=== PATIENT | female | born 1970 | race Caucasian/White ===

== ENCOUNTER 2016-09-19 17:31 | Emergency (ER) | payer OTHER ==
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
--- NOTE | 2016-09-19 19:14 | ED MAR SUMMARY ---
..... Medication Administration Record [facility] [address] [place], [place] [id number] Patient: VERÓNICA CANTU Visit ID: [id number] 46y, F Weight: 72.5 kg Height/Length: 61 in BMI: 30.2 ALLERGIES: No Known Drug Allergy
--- NOTE | 2016-09-19 19:14 | ED MAR SUMMARY ---
..... Medication Administration Record [facility] [address] [place], [place] [id number] Patient: VERÓNICA CANTU Visit ID: [id number] 46y, F Weight: 72.5 kg Height/Length: 61 in BMI: 30.2 ALLERGIES: No Known Drug Allergy
--- NOTE | 2016-09-19 19:14 | ED MED RECONCILIATION SUMMARY ---
Patient: VERÓNICA CANTU Medication Reconciliation Report [facility] VisitID: [id number] [address] [place] [address] 46y, F Registration Date/Time: 09/19/2016 Weight: 72.5 kg Height/Length: 61 in. BMI: 30.2 ALLERGIES: No Known Drug Allergy The patient's Home Medications are listed below: THE FOLLOWING MEDICATIONS NEED TO BE RECONCILED: Over the counter antibiotic with pain relief PredniSONE Oral The source(s) of the original Home Medication information: patient The following Medications were given to the patient in the Emergency Department: None. The following Medications were prescribed to the patient: Bactrim DS 800 mg / 160 mg: take 1 tablet orally every 12 hours for 10 days. No refill. -- Dorothy Quinones A.R.N.P. Keflex 500 mg: take 1 capsule orally every 12 hours for 10 days. No refill. -- Dorothy Quinones A.R.N.P. Ultram 50 mg tablets: take 1-2 orally every 6 hours as needed for pain. Dispense twenty (20). No refills. Substitution is permissible. -- Dorothy Quinones A.R.N.P. Betamethasone [id number] bottleapply bid to affected areas. -- Dorothy Quinones A.R.N.P.
--- NOTE | 2016-09-19 19:14 | ED DISCHARGE INSTRUCTIONS ---
Patient: VERÓNICA CANTU General Instructions [facility] VisitID: [id number] [place] [address] 46y, F Registration Date/Time: 09/19/2016 Irritative contact dermatitis. INSTRUCTIONS Warnings: GENERAL WARNINGS: Return or contact your physician immediately if your condition worsens or changes unexpectedly, if not improving as expected, or if other problems arise. Specifically return if problem worsens. Prescription Medications: Bactrim DS 800 mg / 160 mg: take 1 tablet orally every 12 hours for 10 days. No refill. Keflex 500 mg: take 1 capsule orally every 12 hours for 10 days. No refill. Ultram 50 mg tablets: take 1-2 orally every 6 hours as needed for pain. Dispense twenty (20). No refills. Substitution is permissible. Betamethasone Diproprinate 120ml bottle apply bid to affected areas. 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 Call for an appointment. Summary of care provided to patient. Screening today revealed the patient's blood pressure to be in the hypertensive range. The patient should follow up with a primary care provider for blood pressure management. Understanding of the discharge instructions verbalized by patient. ADDITIONAL INFORMATION Dermatitis (Non-Specific) Dermatitis is an inflammation of the skin. The exact cause of your rash is not certain. However, this rash does not appear to be an infection or contagious illness. Taking care of the rash at home should help relieve your symptoms. Home Care: Keep the areas of rash clean by washing it daily. This also helps to keep the skin moist. Use a neutral pH soap such as Dove or Lever 2000. Apply a moisturizing lotion after bathing to prevent dry skin. Avoid skin irritants (wool or silk clothing, grease, oils, some medicines, harsh soaps, and detergents). Wear absorbent, soft fabrics next to the skin rather than rough or scratchy materials. Unless another medicine was prescribed, you may use Hydrocortisone cream (which you can get without a prescription) to reduce the inflammation. Follow Up: Make an appointment with your doctor in the next 1 to 2 weeks if your symptoms do not improve with the above measures. Get Prompt Medical Attention if any of the following occur: Increasing area of redness or pain in the skin Yellow crusts or drainage from the rash Joint pain New rash that appears in other areas of the body Fever of 100.4F (38C) or higher, or as directed by your healthcare provider Sulfamethoxazole, Trimethoprim Oral tablet What is this medicine? SULFAMETHOXAZOLE; TRIMETHOPRIM or SMX-TMP (suhl fuh meth OK jackie zohl; trye METH oh prim) is a combination of a sulfonamide antibiotic and a second antibiotic, trimethoprim. It is used to treat or prevent certain kinds of bacterial infections. It will not work for colds, flu, or other viral infections. How should I use this medicine? Take this medicine by mouth with a full glass of water. Follow the directions on the prescription label. Take your medicine at regular intervals. Do not take it more often than directed. Do not skip doses or stop your medicine early. Talk to your publications writer regarding the use of this medicine in children. Special care may be needed. This medicine has been used in children as young as 2 months of age. What side effects may I notice from receiving this medicine? Side effects that you should report to your doctor or health rn acute care as soon as possible: allergic reactions like skin rash or hives, swelling of the face, lips, or tongue breathing problems fever or chills, sore throat irregular heartbeat, chest pain joint or muscle pain pain or difficulty passing urine red pinpoint spots on skin redness, blistering, peeling or loosening of the skin, including inside the mouth unusual bleeding or bruising unusually weak or tired yellowing of the eyes or skin Side effects that usually do not require medical attention (report to your doctor or health rn acute care if they continue or are bothersome): diarrhea dizziness headache loss of appetite nausea, vomiting nervousness What may interact with this medicine? Do not take this medicine with any of the following medications: aminobenzoate potassium dofetilide metronidazole This medicine may also interact with the following medications: ASHLI inhibitors like benazepril, enalapril, lisinopril, and ramipril cyclosporine digoxin diuretics indomethacin medicines for diabetes methenamine methotrexate phenytoin potassium supplements pyrimethamine sulfinpyrazone tricyclic antidepressants warfarin What if I miss a dose? If you miss a dose, take it as soon as you can. If it is almost time for your next dose, take only that dose. Do not take double or extra doses. Where should I keep my medicine? Keep out of the reach of children. Store at room temperature between 20 to 25 degrees C (68 to 77 degrees F). Protect from light. Throw away any unused medicine after the expiration date. What should I tell my health care provider before I take this medicine? They need to know if you have any of these conditions: anemia asthma being treated with anticonvulsants if you frequently drink alcohol containing drinks kidney disease liver disease low level of folic acid or [id number] dehydrogenase poor nutrition or malabsorption porphyria severe allergies thyroid disorder an unusual or allergic reaction to sulfamethoxazole, trimethoprim, sulfa drugs, other medicines, foods, dyes, or preservatives or trying to get breast-feeding What should I watch for while using this medicine? Tell your doctor or health rn acute care if your symptoms do not improve. Drink several glasses of water a day to reduce the risk of kidney problems. Do not treat diarrhea with over the counter products. Contact your doctor if you have diarrhea that lasts more than 2 days or if it is severe and watery. This medicine can make you more sensitive to the sun. Keep out of the sun. If you cannot avoid being in the sun, wear protective clothing and use a sunscreen. Do not use sun lamps or tanning beds/booths. Cephalexin Monohydrate Oral tablet What is this medicine? CEPHALEXIN (sef a HAYDEN in) is a cephalosporin antibiotic. It is used to treat certain kinds of bacterial infections It will not work for colds, flu, or other viral infections. How should I use this medicine? Take this medicine by mouth with a full glass of water. Follow the directions on the prescription label. This medicine can be taken with or without food. Take your medicine at regular intervals. Do not take your medicine more often than directed. Take all of your medicine as directed even if you think you are better. Do not skip doses or stop your medicine early. Talk to your publications writer regarding the use of this medicine in children. While this drug may be prescribed for selected conditions, precautions do apply. What side effects may I notice from receiving this medicine? Side effects that you should report to your doctor or health rn acute care as soon as possible: allergic reactions like skin rash, itching or hives, swelling of the face, lips, or tongue breathing problems pain or trouble passing urine redness, blistering, peeling or loosening of the skin, including inside the mouth severe or watery diarrhea unusually weak or tired yellowing of the eyes, skin Side effects that usually do not require medical attention (report to your doctor or health rn acute care if they continue or are bothersome): gas or heartburn genital or anal irritation headache joint or muscle pain nausea, vomiting What may interact with this medicine? probenecid some other antibiotics What if I miss a dose? If you miss a dose, take it as soon as you can. If it is almost time for your next dose, take only that dose. Do not take double or extra doses. There should be at least 4 to 6 hours between doses. Where should I keep my medicine? Keep out of the reach of children. Store at room temperature between 59 and 86 degrees F (15 and 30 degrees C). Throw away any unused medicine after the expiration date. What should I tell my health care provider before I take this medicine? They need to know if you have any of these conditions: kidney disease stomach or intestine problems, especially colitis an unusual or allergic reaction to cephalexin, other cephalosporins, penicillins, other antibiotics, medicines, foods, dyes or preservatives or trying to get breast-feeding What should I watch for while using this medicine? Tell your doctor or health rn acute care if your symptoms do not begin to improve in a few days. Do not treat diarrhea with over the counter products. Contact your doctor if you have diarrhea that lasts more than 2 days or if it is severe and watery. If you have diabetes, you may get a false-positive result for sugar in your urine. Check with your doctor or health rn acute care. Tramadol Hydrochloride Oral tablet What is this medicine? TRAMADOL (TRA ma dole) is a pain reliever. It is used to treat moderate to severe pain in adults. How should I use this medicine? Take this medicine by mouth with a full glass of water. Follow the directions on the prescription label. If the medicine upsets your stomach, take it with food or milk. Do not take more medicine than you are told to take. Talk to your publications writer regarding the use of this medicine in children. Special care may be needed. What side effects may I notice from receiving this medicine? Side effects that you should report to your doctor or health rn acute care as soon as possible: allergic reactions like skin rash, itching or hives, swelling of the face, lips, or tongue breathing difficulties, wheezing confusion itching light headedness or fainting spells redness, blistering, peeling or loosening of the skin, including inside the mouth seizures Side effects that usually do not require medical attention (report to your doctor or health rn acute care if they continue or are bothersome): constipation dizziness drowsiness headache nausea, vomiting What may interact with this medicine? Do not take this medicine with any of the following medications: MAOIs like Carbex, Eldepryl, Marplan, Nardil, and Parnate This medicine may also interact with the following medications: alcohol or medicines that contain alcohol antihistamines benzodiazepines bupropion carbamazepine or oxcarbazepine clozapine cyclobenzaprine digoxin furazolidone linezolid medicines for depression, anxiety, or psychotic disturbances medicines for migraine headache like almotriptan, eletriptan, frovatriptan, naratriptan, rizatriptan, sumatriptan, zolmitriptan medicines for pain like pentazocine, buprenorphine, butorphanol, meperidine, nalbuphine, and propoxyphene medicines for sleep muscle relaxants naltrexone phenobarbital phenothiazines like perphenazine, thioridazine, chlorpromazine, mesoridazine, fluphenazine, prochlorperazine, promazine, and trifluoperazine procarbazine warfarin What if I miss a dose? If you miss a dose, take it as soon as you can. If it is almost time for your next dose, take only that dose. Do not take double or extra doses. Where should I keep my medicine? Keep out of the reach of children. Store at room temperature between 15 and 30 degrees C (59 and 86 degrees F). Keep container tightly closed. Throw away any unused medicine after the expiration date. What should I tell my health care provider before I take this medicine? They need to know if you have any of these conditions: brain tumor depression drug abuse or addiction head injury if you frequently drink alcohol containing drinks kidney disease or trouble passing urine liver disease lung disease, asthma, or breathing problems seizures or epilepsy suicidal thoughts, plans, or attempt; a previous suicide attempt by you or a family member an unusual or allergic reaction to tramadol, codeine, other medicines, foods, dyes, or preservatives or trying to get breast-feeding What should I watch for while using this medicine? Tell your doctor or health rn acute care if your pain does not go away, if it gets worse, or if you have new or a different type of pain. You may develop tolerance to the medicine. Tolerance means that you will need a higher dose of the medicine for pain relief. Tolerance is normal and is expected if you take this medicine for a long time. Do not suddenly stop taking your medicine because you may develop a severe reaction. Your body becomes used to the medicine. This does NOT mean you are addicted. Addiction is a behavior related to getting and using a drug for a non-medical reason. If you have pain, you have a medical reason to take pain medicine. Your doctor will tell you how much medicine to take. If your doctor wants you to stop the medicine, the dose will be slowly lowered over time to avoid any side effects. You may get drowsy or dizzy. Do not drive, use machinery, or do anything that needs mental alertness until you know how this medicine affects you. Do not stand or sit up quickly, especially if you are an older patient. This reduces the risk of dizzy or fainting spells. Alcohol can increase or decrease the effects of this medicine. Avoid alcoholic drinks. You may have constipation. Try to have a bowel movement at least every 2 to 3 days. If you do not have a bowel movement for 3 days, call your doctor or health rn acute care. Your mouth may get dry. Chewing sugarless gum or sucking hard candy, and drinking plenty of water may help. Contact your doctor if the problem does not go away or is severe. You have been given the following additional information: Dermatitis, Non-Specific Sulfamethoxazole, Trimethoprim Oral tablet Cephalexin Monohydrate Oral tablet Tramadol Hydrochloride Oral tablet (Electronically signed by Dorothy Quinones A.R.N.P. 09/19/2016 19:14)
--- NOTE | 2016-09-19 19:14 | ED DISCHARGE INSTRUCTIONS ---
Patient: VERÓNICA CANTU General Instructions [facility] VisitID: [id number] [place] [address] 46y, F Registration Date/Time: 09/19/2016 Irritative contact dermatitis. INSTRUCTIONS Warnings: GENERAL WARNINGS: Return or contact your physician immediately if your condition worsens or changes unexpectedly, if not improving as expected, or if other problems arise. Specifically return if problem worsens. Prescription Medications: Bactrim DS 800 mg / 160 mg: take 1 tablet orally every 12 hours for 10 days. No refill. Keflex 500 mg: take 1 capsule orally every 12 hours for 10 days. No refill. Ultram 50 mg tablets: take 1-2 orally every 6 hours as needed for pain. Dispense twenty (20). No refills. Substitution is permissible. Betamethasone Diproprinate 120ml bottle apply bid to affected areas. 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 Call for an appointment. Summary of care provided to patient. Screening today revealed the patient's blood pressure to be in the hypertensive range. The patient should follow up with a primary care provider for blood pressure management. Understanding of the discharge instructions verbalized by patient. ADDITIONAL INFORMATION Dermatitis (Non-Specific) Dermatitis is an inflammation of the skin. The exact cause of your rash is not certain. However, this rash does not appear to be an infection or contagious illness. Taking care of the rash at home should help relieve your symptoms. Home Care: Keep the areas of rash clean by washing it daily. This also helps to keep the skin moist. Use a neutral pH soap such as Dove or Lever 2000. Apply a moisturizing lotion after bathing to prevent dry skin. Avoid skin irritants (wool or silk clothing, grease, oils, some medicines, harsh soaps, and detergents). Wear absorbent, soft fabrics next to the skin rather than rough or scratchy materials. Unless another medicine was prescribed, you may use Hydrocortisone cream (which you can get without a prescription) to reduce the inflammation. Follow Up: Make an appointment with your doctor in the next 1 to 2 weeks if your symptoms do not improve with the above measures. Get Prompt Medical Attention if any of the following occur: Increasing area of redness or pain in the skin Yellow crusts or drainage from the rash Joint pain New rash that appears in other areas of the body Fever of 100.4F (38C) or higher, or as directed by your healthcare provider Sulfamethoxazole, Trimethoprim Oral tablet What is this medicine? SULFAMETHOXAZOLE; TRIMETHOPRIM or SMX-TMP (suhl fuh meth OK jackie zohl; trye METH oh prim) is a combination of a sulfonamide antibiotic and a second antibiotic, trimethoprim. It is used to treat or prevent certain kinds of bacterial infections. It will not work for colds, flu, or other viral infections. How should I use this medicine? Take this medicine by mouth with a full glass of water. Follow the directions on the prescription label. Take your medicine at regular intervals. Do not take it more often than directed. Do not skip doses or stop your medicine early. Talk to your door trimmer regarding the use of this medicine in children. Special care may be needed. This medicine has been used in children as young as 2 months of age. What side effects may I notice from receiving this medicine? Side effects that you should report to your doctor or health child care nurse as soon as possible: allergic reactions like skin rash or hives, swelling of the face, lips, or tongue breathing problems fever or chills, sore throat irregular heartbeat, chest pain joint or muscle pain pain or difficulty passing urine red pinpoint spots on skin redness, blistering, peeling or loosening of the skin, including inside the mouth unusual bleeding or bruising unusually weak or tired yellowing of the eyes or skin Side effects that usually do not require medical attention (report to your doctor or health child care nurse if they continue or are bothersome): diarrhea dizziness headache loss of appetite nausea, vomiting nervousness What may interact with this medicine? Do not take this medicine with any of the following medications: aminobenzoate potassium dofetilide metronidazole This medicine may also interact with the following medications: ASHLI inhibitors like benazepril, enalapril, lisinopril, and ramipril cyclosporine digoxin diuretics indomethacin medicines for diabetes methenamine methotrexate phenytoin potassium supplements pyrimethamine sulfinpyrazone tricyclic antidepressants warfarin What if I miss a dose? If you miss a dose, take it as soon as you can. If it is almost time for your next dose, take only that dose. Do not take double or extra doses. Where should I keep my medicine? Keep out of the reach of children. Store at room temperature between 20 to 25 degrees C (68 to 77 degrees F). Protect from light. Throw away any unused medicine after the expiration date. What should I tell my health care provider before I take this medicine? They need to know if you have any of these conditions: anemia asthma being treated with anticonvulsants if you frequently drink alcohol containing drinks kidney disease liver disease low level of folic acid or [id number] dehydrogenase poor nutrition or malabsorption porphyria severe allergies thyroid disorder an unusual or allergic reaction to sulfamethoxazole, trimethoprim, sulfa drugs, other medicines, foods, dyes, or preservatives or trying to get breast-feeding What should I watch for while using this medicine? Tell your doctor or health child care nurse if your symptoms do not improve. Drink several glasses of water a day to reduce the risk of kidney problems. Do not treat diarrhea with over the counter products. Contact your doctor if you have diarrhea that lasts more than 2 days or if it is severe and watery. This medicine can make you more sensitive to the sun. Keep out of the sun. If you cannot avoid being in the sun, wear protective clothing and use a sunscreen. Do not use sun lamps or tanning beds/booths. Cephalexin Monohydrate Oral tablet What is this medicine? CEPHALEXIN (sef a AHYDEN in) is a cephalosporin antibiotic. It is used to treat certain kinds of bacterial infections It will not work for colds, flu, or other viral infections. How should I use this medicine? Take this medicine by mouth with a full glass of water. Follow the directions on the prescription label. This medicine can be taken with or without food. Take your medicine at regular intervals. Do not take your medicine more often than directed. Take all of your medicine as directed even if you think you are better. Do not skip doses or stop your medicine early. Talk to your door trimmer regarding the use of this medicine in children. While this drug may be prescribed for selected conditions, precautions do apply. What side effects may I notice from receiving this medicine? Side effects that you should report to your doctor or health child care nurse as soon as possible: allergic reactions like skin rash, itching or hives, swelling of the face, lips, or tongue breathing problems pain or trouble passing urine redness, blistering, peeling or loosening of the skin, including inside the mouth severe or watery diarrhea unusually weak or tired yellowing of the eyes, skin Side effects that usually do not require medical attention (report to your doctor or health child care nurse if they continue or are bothersome): gas or heartburn genital or anal irritation headache joint or muscle pain nausea, vomiting What may interact with this medicine? probenecid some other antibiotics What if I miss a dose? If you miss a dose, take it as soon as you can. If it is almost time for your next dose, take only that dose. Do not take double or extra doses. There should be at least 4 to 6 hours between doses. Where should I keep my medicine? Keep out of the reach of children. Store at room temperature between 59 and 86 degrees F (15 and 30 degrees C). Throw away any unused medicine after the expiration date. What should I tell my health care provider before I take this medicine? They need to know if you have any of these conditions: kidney disease stomach or intestine problems, especially colitis an unusual or allergic reaction to cephalexin, other cephalosporins, penicillins, other antibiotics, medicines, foods, dyes or preservatives or trying to get breast-feeding What should I watch for while using this medicine? Tell your doctor or health child care nurse if your symptoms do not begin to improve in a few days. Do not treat diarrhea with over the counter products. Contact your doctor if you have diarrhea that lasts more than 2 days or if it is severe and watery. If you have diabetes, you may get a false-positive result for sugar in your urine. Check with your doctor or health child care nurse. Tramadol Hydrochloride Oral tablet What is this medicine? TRAMADOL (TRA ma dole) is a pain reliever. It is used to treat moderate to severe pain in adults. How should I use this medicine? Take this medicine by mouth with a full glass of water. Follow the directions on the prescription label. If the medicine upsets your stomach, take it with food or milk. Do not take more medicine than you are told to take. Talk to your door trimmer regarding the use of this medicine in children. Special care may be needed. What side effects may I notice from receiving this medicine? Side effects that you should report to your doctor or health child care nurse as soon as possible: allergic reactions like skin rash, itching or hives, swelling of the face, lips, or tongue breathing difficulties, wheezing confusion itching light headedness or fainting spells redness, blistering, peeling or loosening of the skin, including inside the mouth seizures Side effects that usually do not require medical attention (report to your doctor or health child care nurse if they continue or are bothersome): constipation dizziness drowsiness headache nausea, vomiting What may interact with this medicine? Do not take this medicine with any of the following medications: MAOIs like Carbex, Eldepryl, Marplan, Nardil, and Parnate This medicine may also interact with the following medications: alcohol or medicines that contain alcohol antihistamines benzodiazepines bupropion carbamazepine or oxcarbazepine clozapine cyclobenzaprine digoxin furazolidone linezolid medicines for depression, anxiety, or psychotic disturbances medicines for migraine headache like almotriptan, eletriptan, frovatriptan, naratriptan, rizatriptan, sumatriptan, zolmitriptan medicines for pain like pentazocine, buprenorphine, butorphanol, meperidine, nalbuphine, and propoxyphene medicines for sleep muscle relaxants naltrexone phenobarbital phenothiazines like perphenazine, thioridazine, chlorpromazine, mesoridazine, fluphenazine, prochlorperazine, promazine, and trifluoperazine procarbazine warfarin What if I miss a dose? If you miss a dose, take it as soon as you can. If it is almost time for your next dose, take only that dose. Do not take double or extra doses. Where should I keep my medicine? Keep out of the reach of children. Store at room temperature between 15 and 30 degrees C (59 and 86 degrees F). Keep container tightly closed. Throw away any unused medicine after the expiration date. What should I tell my health care provider before I take this medicine? They need to know if you have any of these conditions: brain tumor depression drug abuse or addiction head injury if you frequently drink alcohol containing drinks kidney disease or trouble passing urine liver disease lung disease, asthma, or breathing problems seizures or epilepsy suicidal thoughts, plans, or attempt; a previous suicide attempt by you or a family member an unusual or allergic reaction to tramadol, codeine, other medicines, foods, dyes, or preservatives or trying to get breast-feeding What should I watch for while using this medicine? Tell your doctor or health child care nurse if your pain does not go away, if it gets worse, or if you have new or a different type of pain. You may develop tolerance to the medicine. Tolerance means that you will need a higher dose of the medicine for pain relief. Tolerance is normal and is expected if you take this medicine for a long time. Do not suddenly stop taking your medicine because you may develop a severe reaction. Your body becomes used to the medicine. This does NOT mean you are addicted. Addiction is a behavior related to getting and using a drug for a non-medical reason. If you have pain, you have a medical reason to take pain medicine. Your doctor will tell you how much medicine to take. If your doctor wants you to stop the medicine, the dose will be slowly lowered over time to avoid any side effects. You may get drowsy or dizzy. Do not drive, use machinery, or do anything that needs mental alertness until you know how this medicine affects you. Do not stand or sit up quickly, especially if you are an older patient. This reduces the risk of dizzy or fainting spells. Alcohol can increase or decrease the effects of this medicine. Avoid alcoholic drinks. You may have constipation. Try to have a bowel movement at least every 2 to 3 days. If you do not have a bowel movement for 3 days, call your doctor or health child care nurse. Your mouth may get dry. Chewing sugarless gum or sucking hard candy, and drinking plenty of water may help. Contact your doctor if the problem does not go away or is severe. You have been given the following additional information: Dermatitis, Non-Specific Sulfamethoxazole, Trimethoprim Oral tablet Cephalexin Monohydrate Oral tablet Tramadol Hydrochloride Oral tablet (Electronically signed by Dorothy Quinones A.R.N.P. 09/19/2016 19:14)
--- NOTE | 2016-09-19 19:14 | ED MED RECONCILIATION SUMMARY ---
Patient: VERÓNICA CANTU Medication Reconciliation Report [facility] VisitID: [id number] [place] [address] 46y, F Registration Date/Time: 09/19/2016 Weight: 72.5 kg Height/Length: 61 in. BMI: 30.2 ALLERGIES: No Known Drug Allergy The patient's Home Medications are listed below: THE FOLLOWING MEDICATIONS NEED TO BE RECONCILED: Over the counter antibiotic with pain relief PredniSONE Oral The source(s) of the original Home Medication information: patient The following Medications were given to the patient in the Emergency Department: None. The following Medications were prescribed to the patient: Bactrim DS 800 mg / 160 mg: take 1 tablet orally every 12 hours for 10 days. No refill. -- Dorothy Quinones A.R.N.P. Keflex 500 mg: take 1 capsule orally every 12 hours for 10 days. No refill. -- Dorothy Quinones A.R.N.P. Ultram 50 mg tablets: take 1-2 orally every 6 hours as needed for pain. Dispense twenty (20). No refills. Substitution is permissible. -- Dorothy Quinones A.R.N.P. Betamethasone [id number] bottleapply bid to affected areas. -- Dorothy Quinones A.R.N.P.
== END 2016-09-19 18:22 | disposition home or self-care (01) ==
LOC: ED SRH 17:31
DX: L24.9 Irritant contact dermatitis, unspecified cause (principal); Z79.52 Long term (current) use of systemic steroids; Z79.2 Long term (current) use of antibiotics

== ENCOUNTER 2016-11-21 19:06 | Emergency (ER) | payer OTHER ==
--- NOTE | 2016-11-21 21:54 | ED CLINICAL REPORT ---
Clinical Report - Physicians/Mid Levels [facility] [address] [place] [address] 11/21/2016 19:07 Patient: VERÓNICA CANTU Time Seen: 1937. Arrived- By private vehicle. Historian- patient. HISTORY OF PRESENT ILLNESS Chief Complaint: FLANK PAIN. This started past week or two and is still present and worsening. It was abrupt in onset and has been intermittent but is not gone now. It is described as sharp. No radiation. It is described as located in the right flank. At its maximum, severity described as moderate. When seen in the E.D., severity described as moderate. No nausea, loss of appetite, vomiting or diarrhea. No additional abdominal pain. (reports hx of pyelo and stones). No recent travel. Similar symptoms previously: None. Recent medical care: Not recently seen/assessed. REVIEW OF SYSTEMS No fever. All systems otherwise negative, except as recorded above. PAST HISTORY See nurses notes. Medications: Keflex Oral. Allergies: None. SOCIAL HISTORY Never smoker. Regular alcohol use. No drug use. No recent travel. Is a local resident. ADDITIONAL NOTES The nursing notes have been reviewed. PHYSICAL EXAM Vital Signs: 11/21/2016 19:11 BP: 125/92. HR: 127. RR: 20. O2 saturation: 99%. Temp: 98.1 F. Pain level now: 8/10. Oxygen saturation normal. Appearance: Alert. Oriented X3. Patient in mild distress. (pleasant. non-toxic.). Eyes: Pupils equal, round and reactive to light. Eyes normal inspection. ENT: Ears normal. Nose normal. Pharynx normal. Neck: Normal inspection. Neck supple. CVS: Normal heart rate and rhythm. Heart sounds normal. Pulses normal. Respiratory: No respiratory distress. Breath sounds normal. Chest nontender. No rales, rhonchi or wheezes. Abdomen: Soft and nontender. Bowel sounds normal. Back: Normal inspection. Moderate CVA tenderness on the right. (no crepitus. no overlying skin changes. no midline tenderness.). Skin: Skin warm and dry. Normal skin color. No rash. Normal skin turgor. Extremities: Extremities exhibit normal ROM. No lower extremity edema. Neuro: Oriented X 3. No motor deficit. No sensory deficit. LABS, X-RAYS, AND EKG Abdominal CT: 1. No evidence of urinary calculi but there is mild right hydronephrosis which may be secondary to a recently passed calculus. 2. Hiatal hernia. Study type: renal stone evaluation. Abdominal CT performed without contrast. The study was independently viewed by me, interpreted by the radiologist and discussed with the radiologist. Laboratory Tests: UA-Culture if indicated: (CHRIS: 11/21/2016 19:10) ( [facility] 11/21/2016 20:40) Final results Test Result Flag Units (Reference) URINE COLOR YELLOW URINE APPEARANCE CLEAR URINE GLUCOSE NEGATIVE (NEGATIVE) URINE BILIRUBIN NEGATIVE (NEGATIVE) URINE KETONE NEGATIVE (NEGATIVE) URINE SPECIFIC GRAVITY <= 1.005 L (1.010-1.030) URINE PH 6.0 (5.0-8.0) URINE PROTEIN NEGATIVE (NEGATIVE) URINE UROBILINOGEN 0.2 EU/dL (0.2-1.0) URINE NITRITE NEGATIVE (NEGATIVE) URINE BLOOD TRACE-INTACT (NEGATIVE) URINE LEUK ESTERASE NEGATIVE (NEGATIVE) URINE RBC NONE SEEN rbc/hpf (0-1) URINE WBC NONE SEEN wbc/hpf (0-1) URINE EPITHELIAL CELLS 0-1 EPI/hpf (0-5) URINE BACTERIA NONE SEEN (NONE SEEN) URINE COMMENT CULT NOT INDICATED URINE CULTURES ARE SET-UP BASED ON THE FOLLOWING CRITERIA:POSITIVE NITRITEPOSITIVE LEUKOCYTE ESTERASEGREATER THAN 10 WHITE BLOOD CELLSMODERATE (2+) OR GREATER BACTERIA Urine: (CHRIS: 11/21/2016 19:10) ( [facility] 11/21/2016 20:25) Final results Test Result Flag Units (Reference) URINE NEGATIVE CBC w Diff: (CHRIS: 11/21/2016 19:20) ( [facility] 11/21/2016 20:19) Final results Test Result Flag Units (Reference) WHITE BLOOD COUNT 10.7 K/uL (4.5-11.5) RED BLOOD COUNT 4.27 M/uL (4.00-5.20) HEMOGLOBIN 15.1 gm/dL (12.0-16.0) HEMATOCRIT 45.2 % (36.0-46.0) MEAN CELL VOLUME 106 H fL (80-100) MEAN CORPUSCULAR HGB 35 H pg (26-34) MEAN CORPUSCULAR HGB CONC 33 g/dL (31-37) RED CELL DISTRIBUTION WIDTH 14.1 % (11.6-14.8) PLATELET COUNT 381 K/uL (150-400) NEUTROPHIL % 74.3 % (50-75) LYMPH % 15.9 L % (25-40) MONO % 7.4 % (3-14) EOSINOPHIL % 1.9 % (0-4) BASOPHIL % 0.5 % (0-2) CMP: (CHRIS: 11/21/2016 19:20) ( MsgRcvd 11/21/2016 21:10) Final results Test Result Flag Units (Reference) GLUCOSE 109 mg/dL (70-110) BUN 5 L mg/dL (7-18) CREATININE 0.7 mg/dL (0.6-1.3) Estimated GFR >60 mL/min Estimated GFR- >60 mL/min Note: Persistent reduction over 3 months in eGFR<60 mL/min/1.73 m2 defines CKD. Patients with eGFR values>=60 mL/min/1.73 m2 may also have CKD if evidence ofpersistent proteinuria. Additional information may be foundat www.kidney.org. SODIUM 140 mmol/L (136-145) POTASSIUM 4.1 mmol/L (3.5-5.1) CHLORIDE 102 mmol/L (98-107) CARBON DIOXIDE 27 mmol/L (21-32) CALCIUM 9.0 mg/dL (8.5-10.1) TOTAL PROTEIN 7.6 g/dL (6.4-8.2) ALBUMIN 3.4 g/dL (3.3-5.0) BILIRUBIN, TOTAL 0.2 mg/dL (0.0-1.0) ALKALINE PHOSPHATASE 154 H U/L (46-116) AST (SGOT) 76 H U/L (15-37) ALT (SGPT) 55 U/L (12-78) LIPASE 974 H U/L (73-393) . PROGRESS AND PROCEDURES Disposition: Discharged home in good and improved condition. Condition: good. CLINICAL IMPRESSION Acute right flank pain (Likely a recently passed stone). INSTRUCTIONS Drink plenty of fluids. Your Current Medications: CONTINUE TAKING THE FOLLOWING MEDICATIONS: Keflex Oral. Prescription Medications: Hydrocodone/APAP 5mg / 325mg: take 1-2 orally every 6 hours as needed for pain. Dispense twenty (20). No refill. Zofran (orally disintegrating tablets) 4 mg: take 1 orally every 6 hours as needed for nausea and vomiting. Dispense ten (10). One refill. Substitution is permissible. Follow-up: Follow up with your doctor in about two days. Call for an appointment. (Electronically signed by Gibson Ching Dr. 11/21/2016 23:11)
--- NOTE | 2016-11-21 21:54 | ED ORDER SUMMARY ---
..... Patient: VERÓNICA CANTU OrderSheet [facility] VisitID: [id number] [place] [address] 46y, F Registration Date/Time: 11/21/2016 ORDER SHEET Weight: 74.8 kg (stated) Allergies: None GENERAL ORDERS: UA-Culture if indicated Urgent (19:46 11/21/2016 HSoule per protocol) (Ack 19:48 [place]) (20:00 KKnebel R.N.) Urine Urgent (19:46 11/21/2016 HSoule per protocol) (Ack 19:48 Rachel) (20:00 Handybel R.N.) CBC w Diff Urgent (19:50 11/21/2016 Eliseo Collazo) (Ack 19:52 Rachel) (20:00 Handybel R.N.) CMP Urgent (19:50 11/21/2016 Eliseo Collazo) (Ack 19:52 Rachel) (20:00 LEANDRAnebel R.N.) Lipase Urgent (19:50 11/21/2016 Eliseo Collazo) (Ack 19:52 Rachel) (20:00 Handybel R.N.) CT Abd/Pel wo Cont Urgent (20:49 11/21/2016 Eliseo Collazo) (Ack 20:50 Rachel) (20:57 KKnebel R.N.) MEDICATION ORDERS: IV FLUIDS: IV NS : initial bolus 1000 mL (1000 mL/hr), then none - for X1 (NOW) (19:49 11/21/2016 Eliseo Collazo) (20:01 Gokul R.N.) Morphine IV 4 mg (HIGH ALERT MEDICATION, NOW) (19:49 11/21/2016 Eliseo Collazo) (20:01 LEANDRAnebernardino R.N.) Morphine IV 4 mg (HIGH ALERT MEDICATION, NOW) (21:11 11/21/2016 Eliseo Collazo) (Ack 21:13 HSoule) (21:24 HSoule) Toradol IV 30 mg (NOW) (21:47 11/21/2016 Rajni Collazo) (Ack 21:55 KPaCastro Cooper) (22:17 Gokul Cooper) ORDER SHEET NOTES: [Electronically signed by Gibson Ching Dr. (23:11 11/21/2016)] [Electronically signed by Mariann Faust R.N. (11:00 11/22/2016)] [Electronically locked/signed by Mariann Faust R.N. (11:00 11/22/2016)]
--- NOTE | 2016-11-21 21:54 | ED ORDER SUMMARY ---
..... Patient: VERÓNICA CANTU OrderSheet [facility] VisitID: [id number] [place] [address] 46y, F Registration Date/Time: 11/21/2016 ORDER SHEET Weight: 74.8 kg (stated) Allergies: None GENERAL ORDERS: UA-Culture if indicated Urgent (19:46 11/21/2016 HSoule per protocol) (Ack 19:48 [place]) (20:00 KKnebel R.N.) Urine Urgent (19:46 11/21/2016 HSoule per protocol) (Ack 19:48 Rachel) (20:00 Handybel R.N.) CBC w Diff Urgent (19:50 11/21/2016 Eliseo Collazo) (Ack 19:52 Rachel) (20:00 Handybel R.N.) CMP Urgent (19:50 11/21/2016 Eliseo Collazo) (Ack 19:52 Rachel) (20:00 LEANDRAnebel R.N.) Lipase Urgent (19:50 11/21/2016 Eliseo Collazo) (Ack 19:52 Rachel) (20:00 Handybel R.N.) CT Abd/Pel wo Cont Urgent (20:49 11/21/2016 Eliseo Collazo) (Ack 20:50 Rachel) (20:57 KKnebel R.N.) MEDICATION ORDERS: IV FLUIDS: IV NS : initial bolus 1000 mL (1000 mL/hr), then none - for X1 (NOW) (19:49 11/21/2016 Eliseo Collazo) (20:01 Gokul R.N.) Morphine IV 4 mg (HIGH ALERT MEDICATION, NOW) (19:49 11/21/2016 Eliseo Collazo) (20:01 LEANDRAnebernardino R.N.) Morphine IV 4 mg (HIGH ALERT MEDICATION, NOW) (21:11 11/21/2016 Eliseo Collazo) (Ack 21:13 HSoule) (21:24 HSoule) Toradol IV 30 mg (NOW) (21:47 11/21/2016 Rajni Collazo) (Ack 21:55 KPaCastro Cooper) (22:17 Gokul Cooper) ORDER SHEET NOTES: [Electronically signed by Gibson Ching Dr. (23:11 11/21/2016)] [Electronically signed by Mariann Faust R.N. (11:00 11/22/2016)] [Electronically locked/signed by Mariann Faust R.N. (11:00 11/22/2016)]
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
--- NOTE | 2016-11-21 22:23 | DIAGNOSTIC IMAGING REPORT ---
PROCEDURE: CT ABDOMEN/PELVIS W/O CONTRAST INDICATION: RIGHT FLANK TECHNIQUE: Noncontrast axial images were obtained of the entire abdomen and pelvis with sagittal and coronal reformations. COMPARISON: CT abdomen/pelvis 06/09/2016. FINDINGS: ABDOMEN: No evidence of urinary calculi. Mild right hydronephrosis which may be secondary to a recently passed calculus. Lung base are clear. Normal heart size. Bilateral breast implants. No change in the focal fatty infiltration of the left hepatic lobe, medial segment. Gallbladder pancreas, spleen and adrenal glands are normal. Normal abdominal aorta. Nonspecific bowel gas pattern. Small hiatal hernia. PELVIS: Normal appendix uterus, adnexa and bladder are unremarkable. Bones are unremarkable. IMPRESSION: 1. No evidence of urinary calculi but there is mild right hydronephrosis which may be secondary to a recently passed calculus. 2. Hiatal hernia 3. Results discussed with Dr. Ching All CT scans at this facility use dose modulation, iterative reconstruction, and/or weight-based dosing when appropriate to reduce radiation dose to as low as reasonably achievable.
--- NOTE | 2016-11-22 11:00 | ED MAR SUMMARY ---
..... Medication Administration Record [facility] [address] [place] [address] Patient: VERÓNICA CANTU Visit ID: [id number] 46y, F Weight: 74.8 kg Height/Length: 61 in BMI: 31.2 ALLERGIES: None Start 20:11/21/2016 Mariann Faust R.N., Stop 21:24 11/21/2016 Nati Lawson, Medication Administered: IV NS (SALINE), Dose: IV Fluids, Bolus: 1000 mL over 1 hour(s), Dispensed: 1000 mL bag, Site: #1 right AC. Medication Ordered: IV NS : initial bolus 1000 mL (1000 mL/hr), then none - for X1 (NOW). Given 20:11/21/2016 Mariann Faust R.N. Medication Administered: MORPHINE [IVP], Dose: 4 mg IVP over 2 minute(s), Site: #1 right AC. Medication Ordered: Morphine IV 4 mg (HIGH ALERT MEDICATION, NOW). Given 21:11/21/2016 Nati Lawson, Medication Administered: MORPHINE [IVP], Dose: 4 mg IVP over 1 minute(s), Site: #1 right AC. Medication Ordered: Morphine IV 4 mg (HIGH ALERT MEDICATION, NOW). Given 22:02 11/21/2016 Mariann Faust R.N. Medication Administered: TORADOL [IVP], Dose: 30 mg IVP over 2 minute(s), Site: #1 right AC. Medication Ordered: Toradol IV 30 mg (NOW).
--- NOTE | 2016-11-22 11:00 | ED DISCHARGE INSTRUCTIONS ---
Patient: VERÓNICA CANTU General Instructions [facility] VisitID: [id number] [place] [address] 46y, F Registration Date/Time: 11/21/2016 Acute right flank pain (Likely a recently passed stone). INSTRUCTIONS Drink plenty of fluids. Your Current Medications: CONTINUE TAKING THE FOLLOWING MEDICATIONS: Keflex Oral. Prescription Medications: Hydrocodone/APAP 5mg / 325mg: take 1-2 orally every 6 hours as needed for pain. Dispense twenty (20). No refill. Zofran (orally disintegrating tablets) 4 mg: take 1 orally every 6 hours as needed for nausea and vomiting. Dispense ten (10). One refill. Substitution is permissible. Follow-up: Follow up with your doctor in about two days. Call for an appointment. ADDITIONAL INFORMATION Flank Pain[Uncertain Cause] The flank is the area between the upper abdomen and the back. Pain here is often related to the kidneyan infection or a kidney stone. Other causes of flank pain include spinal arthritis, pinched nerve from a disk injury, back muscle strain or spasm. The cause of your flank pain is not certain and further tests may be needed. Home Care: You may use acetaminophen (Tylenol) or ibuprofen (Motrin, Advil) to control pain, unless another medicine was prescribed. [NOTE: If you have chronic liver or kidney disease or ever had a stomach ulcer or GI bleeding, talk with your doctor before using these medicines.] If the cause of your pain is coming from the muscles, ice or heat may give relief. During the first two days after injury, apply an ICE PACK to the painful area for 20 minutes every 2-4 hours. This will reduce swelling and pain. HEAT (hot shower, hot bath or heating pad) works well for muscle spasm. You can start with ice, then switch to heat after two days. Some patients feel best alternating ice and heat treatments. Use the one method that feels the best to you. Follow Up with your doctor or as advised by our staff for further evaluation if your symptoms are not improving over the next few days. Return Promptly or contact your doctor if any of the following occur: Repeated vomiting Fever of 100.4F (38C) or higher, or as directed by your healthcare provider Increasing flank pain Pain that spreads to the front of the abdomen Dizziness, weakness or fainting Blood in your urine Burning with urination or frequent urination Increasing pain in the leg Numbness or weakness in the leg Hydrocodone Bitartrate, Acetaminophen Oral tablet What is this medicine? ACETAMINOPHEN; HYDROCODONE (a set a JUSTYNA clark fen; joaquin droe KOE done) is a pain reliever. It is used to treat mild to moderate pain. How should I use this medicine? Take this medicine by mouth. Swallow it with a full glass of water. Follow the directions on the prescription label. If the medicine upsets your stomach, take the medicine with food or milk. Do not take more than you are told to take. Talk to your analyst market intelligence regarding the use of this medicine in children. This medicine is not approved for use in children. What side effects may I notice from receiving this medicine? Side effects that you should report to your doctor or health lpn care manager as soon as possible: allergic reactions like skin rash, itching or hives, swelling of the face, lips, or tongue breathing problems confusion feeling faint or lightheaded, falls stomach pain yellowing of the eyes or skin Side effects that usually do not require medical attention (report to your doctor or health lpn care manager if they continue or are bothersome): nausea, vomiting stomach upset What may interact with this medicine? alcohol antihistamines isoniazid medicines for depression, anxiety, or psychotic disturbances medicines for sleep muscle relaxants naltrexone narcotic medicines (opiates) for pain phenobarbital ritonavir tramadol What if I miss a dose? If you miss a dose, take it as soon as you can. If it is almost time for your next dose, take only that dose. Do not take double or extra doses. Where should I keep my medicine? Keep out of the reach of children. This medicine can be abused. Keep your medicine in a safe place to protect it from theft. Do not share this medicine with anyone. Selling or giving away this medicine is dangerous and against the law. Store at room temperature between 15 and 30 degrees C (59 and 86 degrees F). Protect from light. Keep container tightly closed. Throw away any unused medicine after the expiration date. Discard unused medicine and used packaging carefully. Pets and children can be harmed if they find used or lost packages. What should I tell my health care provider before I take this medicine? They need to know if you have any of these conditions: brain tumor Crohn's disease, inflammatory bowel disease, or ulcerative colitis drink more than 3 alcohol-containing drinks per day drug abuse or addiction head injury heart or circulation problems kidney disease or problems going to the bathroom liver disease lung disease, asthma, or breathing problems an unusual or allergic reaction to acetaminophen, hydrocodone, other opioid analgesics, other medicines, foods, dyes, or preservatives or trying to get breast-feeding What should I watch for while using this medicine? Tell your doctor or health lpn care manager if your pain does not go away, if it gets worse, or if you have new or a different type of pain. You may develop tolerance to the medicine. Tolerance means that you will need a higher dose of the medicine for pain relief. Tolerance is normal and is expected if you take the medicine for a long time. Do not suddenly stop taking your medicine because you may develop a severe reaction. Your body becomes used to the medicine. This does NOT mean you are addicted. Addiction is a behavior related to getting and using a drug for a non-medical reason. If you have pain, you have a medical reason to take pain medicine. Your doctor will tell you how much medicine to take. If your doctor wants you to stop the medicine, the dose will be slowly lowered over time to avoid any side effects. You may get drowsy or dizzy when you first start taking the medicine or change doses. Do not drive, use machinery, or do anything that may be dangerous until you know how the medicine affects you. Stand or sit up slowly. There are different types of narcotic medicines (opiates) for pain. If you take more than one type at the same time, you may have more side effects. Give your health care provider a list of all medicines you use. Your doctor will tell you how much medicine to take. Do not take more medicine than directed. Call emergency for help if you have problems breathing. The medicine will cause constipation. Try to have a bowel movement at least every 2 to 3 days. If you do not have a bowel movement for 3 days, call your doctor or health lpn care manager. Too much acetaminophen can be very dangerous. Do not take Tylenol (acetaminophen) or medicines that contain acetaminophen with this medicine. Many non-prescription medicines contain acetaminophen. Always read the labels carefully. Ondansetron Oral disintegrating tablet What is this medicine? ONDANSETRON (on CJ se shanita) is used to treat nausea and vomiting caused by chemotherapy. It is also used to prevent or treat nausea and vomiting after surgery. How should I use this medicine? These tablets are made to dissolve in the mouth. Do not try to push the tablet through the foil backing. With dry hands, peel away the foil backing and gently remove the tablet. Place the tablet in the mouth and allow it to dissolve, then swallow. While you may take these tablets with water, it is not necessary to do so. Talk to your analyst market intelligence regarding the use of this medicine in children. Special care may be needed. What side effects may I notice from receiving this medicine? Side effects that you should report to your doctor or health lpn care manager as soon as possible: allergic reactions like skin rash, itching or hives, swelling of the face, lips, or tongue breathing problems dizziness fast or irregular heartbeat feeling faint or lightheaded, falls fever and chills swelling of the hands and feet tightness in the chest Side effects that usually do not require medical attention (report to your doctor or health lpn care manager if they continue or are bothersome): constipation or diarrhea headache What may interact with this medicine? Do not take this medicine with any of the following medications: -apomorphine -cisapride -dofetilide -dronedarone -pimozide -thioridazine -ziprasidone This medicine may also interact with the following medications: -carbamazepine -phenytoin -rifampicin -tramadol -other medicines that prolong the QT interval (cause an abnormal heart rhythm) What if I miss a dose? If you miss a dose, take it as soon as you can. If it is almost time for your next dose, take only that dose. Do not take double or extra doses. Where should I keep my medicine? Keep out of the reach of children. Store between 2 and 30 degrees C (36 and 86 degrees F). Throw away any unused medicine after the expiration date. What should I tell my health care provider before I take this medicine? They need to know if you have any of these conditions: heart disease history of irregular heartbeat liver disease low levels of magnesium or potassium in the blood an unusual or allergic reaction to ondansetron, granisetron, other medicines, foods, dyes, or preservatives or trying to get breast-feeding What should I watch for while using this medicine? Check with your doctor or health lpn care manager as soon as you can if you have any sign of an allergic reaction. You have been given the following additional information: Flank Pain, Uncertain Cause Hydrocodone Bitartrate, Acetaminophen Oral tablet Ondansetron Oral disintegrating tablet (Electronically signed by Gibson Ching Dr. 11/21/2016 23:11)
--- NOTE | 2016-11-22 11:00 | ED MAR SUMMARY ---
..... Medication Administration Record [facility] [address] [place] [address] Patient: VERÓNICA CANTU Visit ID: [id number] 46y, F Weight: 74.8 kg Height/Length: 61 in BMI: 31.2 ALLERGIES: None Start 20:11/21/2016 Mariann Faust R.N., Stop 21:24 11/21/2016 Nati Lawson, Medication Administered: IV NS (SALINE), Dose: IV Fluids, Bolus: 1000 mL over 1 hour(s), Dispensed: 1000 mL bag, Site: #1 right AC. Medication Ordered: IV NS : initial bolus 1000 mL (1000 mL/hr), then none - for X1 (NOW). Given 20:11/21/2016 Mariann Faust R.N. Medication Administered: MORPHINE [IVP], Dose: 4 mg IVP over 2 minute(s), Site: #1 right AC. Medication Ordered: Morphine IV 4 mg (HIGH ALERT MEDICATION, NOW). Given 21:11/21/2016 Nati Lawson, Medication Administered: MORPHINE [IVP], Dose: 4 mg IVP over 1 minute(s), Site: #1 right AC. Medication Ordered: Morphine IV 4 mg (HIGH ALERT MEDICATION, NOW). Given 22:02 11/21/2016 Mariann Faust R.N. Medication Administered: TORADOL [IVP], Dose: 30 mg IVP over 2 minute(s), Site: #1 right AC. Medication Ordered: Toradol IV 30 mg (NOW).
--- NOTE | 2016-11-22 11:00 | ED DISCHARGE INSTRUCTIONS ---
Patient: VERÓNICA CANTU General Instructions [facility] VisitID: [id number] [place] [address] 46y, F Registration Date/Time: 11/21/2016 Acute right flank pain (Likely a recently passed stone). INSTRUCTIONS Drink plenty of fluids. Your Current Medications: CONTINUE TAKING THE FOLLOWING MEDICATIONS: Keflex Oral. Prescription Medications: Hydrocodone/APAP 5mg / 325mg: take 1-2 orally every 6 hours as needed for pain. Dispense twenty (20). No refill. Zofran (orally disintegrating tablets) 4 mg: take 1 orally every 6 hours as needed for nausea and vomiting. Dispense ten (10). One refill. Substitution is permissible. Follow-up: Follow up with your doctor in about two days. Call for an appointment. ADDITIONAL INFORMATION Flank Pain[Uncertain Cause] The flank is the area between the upper abdomen and the back. Pain here is often related to the kidneyan infection or a kidney stone. Other causes of flank pain include spinal arthritis, pinched nerve from a disk injury, back muscle strain or spasm. The cause of your flank pain is not certain and further tests may be needed. Home Care: You may use acetaminophen (Tylenol) or ibuprofen (Motrin, Advil) to control pain, unless another medicine was prescribed. [NOTE: If you have chronic liver or kidney disease or ever had a stomach ulcer or GI bleeding, talk with your doctor before using these medicines.] If the cause of your pain is coming from the muscles, ice or heat may give relief. During the first two days after injury, apply an ICE PACK to the painful area for 20 minutes every 2-4 hours. This will reduce swelling and pain. HEAT (hot shower, hot bath or heating pad) works well for muscle spasm. You can start with ice, then switch to heat after two days. Some patients feel best alternating ice and heat treatments. Use the one method that feels the best to you. Follow Up with your doctor or as advised by our staff for further evaluation if your symptoms are not improving over the next few days. Return Promptly or contact your doctor if any of the following occur: Repeated vomiting Fever of 100.4F (38C) or higher, or as directed by your healthcare provider Increasing flank pain Pain that spreads to the front of the abdomen Dizziness, weakness or fainting Blood in your urine Burning with urination or frequent urination Increasing pain in the leg Numbness or weakness in the leg Hydrocodone Bitartrate, Acetaminophen Oral tablet What is this medicine? ACETAMINOPHEN; HYDROCODONE (a set a JUSTYNA clark fen; joaquin droe KOE done) is a pain reliever. It is used to treat mild to moderate pain. How should I use this medicine? Take this medicine by mouth. Swallow it with a full glass of water. Follow the directions on the prescription label. If the medicine upsets your stomach, take the medicine with food or milk. Do not take more than you are told to take. Talk to your sports anchor regarding the use of this medicine in children. This medicine is not approved for use in children. What side effects may I notice from receiving this medicine? Side effects that you should report to your doctor or health manager progressive care as soon as possible: allergic reactions like skin rash, itching or hives, swelling of the face, lips, or tongue breathing problems confusion feeling faint or lightheaded, falls stomach pain yellowing of the eyes or skin Side effects that usually do not require medical attention (report to your doctor or health manager progressive care if they continue or are bothersome): nausea, vomiting stomach upset What may interact with this medicine? alcohol antihistamines isoniazid medicines for depression, anxiety, or psychotic disturbances medicines for sleep muscle relaxants naltrexone narcotic medicines (opiates) for pain phenobarbital ritonavir tramadol What if I miss a dose? If you miss a dose, take it as soon as you can. If it is almost time for your next dose, take only that dose. Do not take double or extra doses. Where should I keep my medicine? Keep out of the reach of children. This medicine can be abused. Keep your medicine in a safe place to protect it from theft. Do not share this medicine with anyone. Selling or giving away this medicine is dangerous and against the law. Store at room temperature between 15 and 30 degrees C (59 and 86 degrees F). Protect from light. Keep container tightly closed. Throw away any unused medicine after the expiration date. Discard unused medicine and used packaging carefully. Pets and children can be harmed if they find used or lost packages. What should I tell my health care provider before I take this medicine? They need to know if you have any of these conditions: brain tumor Crohn's disease, inflammatory bowel disease, or ulcerative colitis drink more than 3 alcohol-containing drinks per day drug abuse or addiction head injury heart or circulation problems kidney disease or problems going to the bathroom liver disease lung disease, asthma, or breathing problems an unusual or allergic reaction to acetaminophen, hydrocodone, other opioid analgesics, other medicines, foods, dyes, or preservatives or trying to get breast-feeding What should I watch for while using this medicine? Tell your doctor or health manager progressive care if your pain does not go away, if it gets worse, or if you have new or a different type of pain. You may develop tolerance to the medicine. Tolerance means that you will need a higher dose of the medicine for pain relief. Tolerance is normal and is expected if you take the medicine for a long time. Do not suddenly stop taking your medicine because you may develop a severe reaction. Your body becomes used to the medicine. This does NOT mean you are addicted. Addiction is a behavior related to getting and using a drug for a non-medical reason. If you have pain, you have a medical reason to take pain medicine. Your doctor will tell you how much medicine to take. If your doctor wants you to stop the medicine, the dose will be slowly lowered over time to avoid any side effects. You may get drowsy or dizzy when you first start taking the medicine or change doses. Do not drive, use machinery, or do anything that may be dangerous until you know how the medicine affects you. Stand or sit up slowly. There are different types of narcotic medicines (opiates) for pain. If you take more than one type at the same time, you may have more side effects. Give your health care provider a list of all medicines you use. Your doctor will tell you how much medicine to take. Do not take more medicine than directed. Call emergency for help if you have problems breathing. The medicine will cause constipation. Try to have a bowel movement at least every 2 to 3 days. If you do not have a bowel movement for 3 days, call your doctor or health manager progressive care. Too much acetaminophen can be very dangerous. Do not take Tylenol (acetaminophen) or medicines that contain acetaminophen with this medicine. Many non-prescription medicines contain acetaminophen. Always read the labels carefully. Ondansetron Oral disintegrating tablet What is this medicine? ONDANSETRON (on CJ se shanita) is used to treat nausea and vomiting caused by chemotherapy. It is also used to prevent or treat nausea and vomiting after surgery. How should I use this medicine? These tablets are made to dissolve in the mouth. Do not try to push the tablet through the foil backing. With dry hands, peel away the foil backing and gently remove the tablet. Place the tablet in the mouth and allow it to dissolve, then swallow. While you may take these tablets with water, it is not necessary to do so. Talk to your sports anchor regarding the use of this medicine in children. Special care may be needed. What side effects may I notice from receiving this medicine? Side effects that you should report to your doctor or health manager progressive care as soon as possible: allergic reactions like skin rash, itching or hives, swelling of the face, lips, or tongue breathing problems dizziness fast or irregular heartbeat feeling faint or lightheaded, falls fever and chills swelling of the hands and feet tightness in the chest Side effects that usually do not require medical attention (report to your doctor or health manager progressive care if they continue or are bothersome): constipation or diarrhea headache What may interact with this medicine? Do not take this medicine with any of the following medications: -apomorphine -cisapride -dofetilide -dronedarone -pimozide -thioridazine -ziprasidone This medicine may also interact with the following medications: -carbamazepine -phenytoin -rifampicin -tramadol -other medicines that prolong the QT interval (cause an abnormal heart rhythm) What if I miss a dose? If you miss a dose, take it as soon as you can. If it is almost time for your next dose, take only that dose. Do not take double or extra doses. Where should I keep my medicine? Keep out of the reach of children. Store between 2 and 30 degrees C (36 and 86 degrees F). Throw away any unused medicine after the expiration date. What should I tell my health care provider before I take this medicine? They need to know if you have any of these conditions: heart disease history of irregular heartbeat liver disease low levels of magnesium or potassium in the blood an unusual or allergic reaction to ondansetron, granisetron, other medicines, foods, dyes, or preservatives or trying to get breast-feeding What should I watch for while using this medicine? Check with your doctor or health manager progressive care as soon as you can if you have any sign of an allergic reaction. You have been given the following additional information: Flank Pain, Uncertain Cause Hydrocodone Bitartrate, Acetaminophen Oral tablet Ondansetron Oral disintegrating tablet (Electronically signed by Gibson Ching Dr. 11/21/2016 23:11)
--- NOTE | 2016-11-22 11:01 | ED MED RECONCILIATION SUMMARY ---
Patient: VERÓNICA CANTU Medication Reconciliation Report [facility] VisitID: [id number] [address] [place] [address] 46y, F Registration Date/Time: 11/21/2016 Weight: 74.8 kg Height/Length: 61 in. BMI: 31.2 ALLERGIES: None The patient's Home Medications are listed below: CONTINUE TAKING THE FOLLOWING MEDICATIONS: Keflex Oral The source(s) of the original Home Medication information: Not obtained. The following Medications were given to the patient in the Emergency Department: IV NS IV Fluids bolus 1000 mL over 1 hour(s), administered: 11/21/2016 8:01:00 PM Morphine [IVP] IVP 4 mg, administered: 11/21/2016 8:01:00 PM Morphine [IVP] IVP 4 mg, administered: 11/21/2016 9:19:00 PM Toradol [IVP] IVP 30 mg, administered: 11/21/2016 10:02:00 PM The following Medications were prescribed to the patient: Hydrocodone/APAP 5mg / 325mg: take 1-2 orally every 6 hours as needed for pain. Dispense twenty (20). No refill. -- Gibson Ching Dr. Zofrnilson (orally disintegrating tablets) 4 mg: take 1 orally every 6 hours as needed for nausea and vomiting. Dispense ten (10). One refill. Substitution is permissible. -- Gibson Ching Dr.
--- NOTE | 2016-11-22 11:01 | ED MED RECONCILIATION SUMMARY ---
Patient: VERÓNICA CANTU Medication Reconciliation Report [facility] VisitID: [id number] [address] [place] [address] 46y, F Registration Date/Time: 11/21/2016 Weight: 74.8 kg Height/Length: 61 in. BMI: 31.2 ALLERGIES: None The patient's Home Medications are listed below: CONTINUE TAKING THE FOLLOWING MEDICATIONS: Keflex Oral The source(s) of the original Home Medication information: Not obtained. The following Medications were given to the patient in the Emergency Department: IV NS IV Fluids bolus 1000 mL over 1 hour(s), administered: 11/21/2016 8:01:00 PM Morphine [IVP] IVP 4 mg, administered: 11/21/2016 8:01:00 PM Morphine [IVP] IVP 4 mg, administered: 11/21/2016 9:19:00 PM Toradol [IVP] IVP 30 mg, administered: 11/21/2016 10:02:00 PM The following Medications were prescribed to the patient: Hydrocodone/APAP 5mg / 325mg: take 1-2 orally every 6 hours as needed for pain. Dispense twenty (20). No refill. -- Gibson Ching Dr. Zofrnilson (orally disintegrating tablets) 4 mg: take 1 orally every 6 hours as needed for nausea and vomiting. Dispense ten (10). One refill. Substitution is permissible. -- Gibson Ching Dr.
== END 2016-11-21 22:15 | disposition home or self-care (01) ==
LOC: ED SRH 19:06
DX: R10.31 Right lower quadrant pain (principal); Z79.2 Long term (current) use of antibiotics
CPT/HCPCS: 90004; 90100; 92235; 93070; 95059

== ENCOUNTER 2016-11-23 03:35 | Inpatient (IN) | payer OTHER ==
[~2016-11-23] VITALS: Ht 157.5 cm; Wt 80.6 kg
--- NOTE | 2016-11-23 05:19 | ED ORDER SUMMARY ---
..... Patient: VERÓNICA CANTU OrderSheet [facility] VisitID: [id number] [place] [address] 46y, F Registration Date/Time: 11/23/2016 ORDER SHEET Weight: 74.8 kg (stated) Allergies: None GENERAL ORDERS: CBC w Diff Urgent (03:58 11/23/2016 Rajni Collazo) (Ack 4:03 ALawrence ER Tech1) (4:11 JRomanelli R.N.) CMP Urgent (03:11/23/2016 Rajni Collazo) (Ack 4:03 ALawrence ER Tech1) (4:11 JRomanelli R.N.) Amylase Urgent (03:11/23/2016 Rajni Collazo) (Ack 4:03 ALawrence ER Tech1) (4:11 JRomanelli R.N.) Lipase Urgent (03:11/23/2016 Rajni Collazo) (Ack 4:03 ALawrence ER Tech1) (4:11 JRomanelli R.N.) UA-Culture if indicated Urgent (03:11/23/2016 Rajni Collazo) (Ack 4:03 ALawrence ER Tech1) (5:38 ALawrence ER Tech1) Urine Drug Screen Urgent (03:11/23/2016 Rajni Collazo) (Ack 4:03 ALawrence ER Tech1) (5:38 ALawrence ER Tech1) Urine Urgent (03:11/23/2016 Rajni Collazo) (Ack 4:03 ALawrence ER Tech1) (5:38 ALawrence ER Tech1) MEDICATION ORDERS: IV FLUIDS: IV NS : initial bolus none -, then 1000 mL/hr for X1 (NOW) (03:58 11/23/2016 Rajni Collazo) (4:24 omanelli R.N.) Toradol IV 30 mg (NOW) (04:03 11/23/2016 Rajni Collazo) (4:25 omanelli R.N.) Demerol IV 50 mg (HIGH ALERT MEDICATION, NOW) (04:30 11/23/2016 Rajni Collazo) (4:41 Vern Cooper) Demerol IV 50 mg (HIGH ALERT MEDICATION, NOW) (05:29 11/23/2016 Rajni Collazo) (5:42 Vern Cooper) ORDER SHEET NOTES: [Electronically signed by Gibson Ching Dr. (05:37 11/23/2016)] [Electronically signed by Ismael Adler R.N. (07:24 11/23/2016)] [Electronically locked/signed by Ismael Adler R.N. (07:24 11/23/2016)]
--- NOTE | 2016-11-23 05:19 | ED ORDER SUMMARY ---
..... Patient: VERÓNICA CANTU OrderSheet [facility] VisitID: [id number] [place] [address] 46y, F Registration Date/Time: 11/23/2016 ORDER SHEET Weight: 74.8 kg (stated) Allergies: None GENERAL ORDERS: CBC w Diff Urgent (03:58 11/23/2016 Rajni Collazo) (Ack 4:03 ALawrence ER Tech1) (4:11 JRomanelli R.N.) CMP Urgent (03:11/23/2016 Rajni Collazo) (Ack 4:03 ALawrence ER Tech1) (4:11 JRomanelli R.N.) Amylase Urgent (03:11/23/2016 Rajni Collazo) (Ack 4:03 ALawrence ER Tech1) (4:11 JRomanelli R.N.) Lipase Urgent (03:11/23/2016 Rajni Collazo) (Ack 4:03 ALawrence ER Tech1) (4:11 JRomanelli R.N.) UA-Culture if indicated Urgent (03:11/23/2016 Rajni Collazo) (Ack 4:03 ALawrence ER Tech1) (5:38 ALawrence ER Tech1) Urine Drug Screen Urgent (03:11/23/2016 Rajni Collazo) (Ack 4:03 ALawrence ER Tech1) (5:38 ALawrence ER Tech1) Urine Urgent (03:11/23/2016 Rajni Collazo) (Ack 4:03 ALawrence ER Tech1) (5:38 ALawrence ER Tech1) MEDICATION ORDERS: IV FLUIDS: IV NS : initial bolus none -, then 1000 mL/hr for X1 (NOW) (03:58 11/23/2016 Rajni Collazo) (4:24 omanelli R.N.) Toradol IV 30 mg (NOW) (04:03 11/23/2016 Rajni Collazo) (4:25 omanelli R.N.) Demerol IV 50 mg (HIGH ALERT MEDICATION, NOW) (04:30 11/23/2016 Rajin Collazo) (4:41 Vern Cooper) Demerol IV 50 mg (HIGH ALERT MEDICATION, NOW) (05:29 11/23/2016 Rajni Collazo) (5:42 Vern Cooper) ORDER SHEET NOTES: [Electronically signed by Gibson Ching Dr. (05:37 11/23/2016)] [Electronically signed by Ismael Adler R.N. (07:24 11/23/2016)] [Electronically locked/signed by Ismael Adler R.N. (07:24 11/23/2016)]
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
[2016-11-23 06:45] VITALS: BP 127/74
[2016-11-23] MEDS ORDERED: ZOFRAN ODT4 MG PO (06:52)
[2016-11-23] MEDS ORDERED: NORCO1 TA1 PO (06:53)
--- NOTE | 2016-11-23 06:59 | History & Physical Report ---
Information Source Information Source: Self Reliability: Fair History Chief Complaint abdominal pain History of Present Illness Patient is a 46 year old female presenting with abdominal pain. Patient was seen in the ED two days ago for the same thing and was found to have slight blood in her urine with dilated ureters and it was asssumed that the patient had passed a kidney stone. Patient came back to the ED two days later with the same presentation and the patient was seen to have an elevated lipase. Patient claims that the abdominal pain in epicenter in location, has no alleviating or excerbating factors and comes in waves. the pain is associated with nausea and vomiting. Patient claims that the home medications that she takes for pain had no effect on the actual epigastric pain. Patient was unable to tolerate any sort of by mouth intake and decided that due to the severity of the abdominal pain the best options would be come in for evaluation. Patient has no other symptoms of the time except for the epigastric pain. Patient is otherwise hemodynamically stable Patient History 1. Pancreatitis, alcoholic, acute Social History Patient is an active smoker she has been smoking for the past 21 the years smokes half a pack a day. Patient drinks every single day she claims to drink 1 bottle wine a day as per her daughter she often drinks more. Patient denies any sort of drug use and has no other drug history. Patient currently lives at home with her children she is contracted to work at [employer] however has not worked in the past couple of months due to undisclosed leave. Family History Family history was reviewed; no changes noted. Medications and Allergies Medications Home Medications probiotic zofran hydrocodone 5 mg q4 hours Current Medications Sig/Alex Start time Last Medication Dose Route Stop Time Status Admin Lorazepam 1 MG Q6H 11/26 1800 AC 11/23 PO 11/27 1201 2006 Lorazepam 1 MG Q6H / 1800 AC IV 11/27 1201 Lorazepam 1 MG Q6H / 1800 AC PO 11/26 1201 Lorazepam 1 MG Q6H / 1800 AC IV 11/26 1201 Lorazepam 1 MG Q4H 11/24 1800 AC PO 11/25 1401 Lorazepam 1 MG Q4H / 1800 AC IV 11/25 1401 Multivit/ 1 TAB DAILY 11/24 899 AC 11/24 Folic Acid/Iron PO 08 Thiamine HCl 100 MG DAILY 11/24 899 AC 11/24 PO 0854 Metoprolol Tartrate 5 MG ONCE 11/24 0445 AC 11/24 IV 0519 Lorazepam 2 MG Q6H 11/23 1800 AC 11/24 PO 11/24 1201 0520 Lorazepam 2 MG Q6H 11/23 1800 AC IV 11/24 1201 Lorazepam 0.5 MG Q30MIN PRN 11/23 1800 AC PO Lorazepam 0.5 MG Q30MIN PRN 11/23 1800 AC IV Nicotine 14 MG QAM 11/23 0900 AC 11/24 TOP 0854 Morphine Sulfate/ See Dose .[SEE DOSE INSTRUC.. 11/23 0730 AC 11/24 Sodium Chloride Insts (1) IV 0757 Sodium Chloride 1,000 ML ASDIRECTED 11/23 0700 AC 11/24 IV 1038 Dose Instructions: (1)Morphine Sulfate/Sodium Chloride: WEB COMMUNICATIONS SPECIALIST CHARTING UNIT = ML BOLUS = 2 MG DOSE = 1 MG LOCKOUT = 6 MIN 4 HR LIMIT = 20 MG CONTINUOUS = 2 MG/HR RANGE 2-4 MG/HR Allergies Coded Allergies: NKA (11/23/16) Review of Systems Constitutional Sweats, Weakness. Eyes Denies: Pain, Vision Change, Conjunctival Inflammation, Eyelid Inflammation, Redness, Other. ENT Denies: Ear Pain, Ear Discharge, Nose Pain, Nasal Discharge, Nasal Congestion, Mouth Pain, Mouth Swelling, Throat Pain, Throat Swelling, Other. Respiratory Denies: Cough, Dry, SOB w/exertion, Wheezing, Hemoptysis, Pleuritic Pain, Sputum , Other. Cardiovascular Denies: Chest Pain, Palpitations, Orthopnea, PND, Edema, Light-headedness, Other. Gastrointestinal Nausea, Vomiting, Abdominal Pain. Denies: Diarrhea, Constipation, Melena, Hematochezia, Other. Genitourinary Denies: Dysuria, Frequency, Incontinence, Hematuria, Retention, Other. Musculoskeletal Denies: Neck Pain, Shoulder Pain, Arm Pain, Back Pain, Hand Pain, Leg Pain, Foot Pain, Other. Skin Denies: Rash, Lesions, Jaundice, Bruising, Other. Neurological Denies: Weakness, Numbness, Incoordination, Change in speech, Confusion, Seizures, Other. Physical Exam Vital Signs / I&Os Vital Signs Date Time Temp Pulse Resp B/P Pulse O2 O2 Flow FiO2 Ox Delivery Rate 11/24 1009 121 19 94 4.0 11/24 0900 4.0 06 0715 98.4 123 16 116/75 92 Nasal 4.0 Cannula 11/24 0703 118 17 94 4.0 06/06 0432 137 24 91 4.0 06/06 0340 131 17 93 3.0 06/06 0202 99.7 134 29 125/68 93 Nasal 3.0 Cannula / 0115 131 17 91 3.0 06/06 0028 3.0 06/05 2243 99.3 132 20 136/69 93 Nasal 3.0 Cannula 06/ 2212 137 20 93 3.0 06/05 1942 129 18 94 3.0 06/05 1810 99.0 133 30 129/67 94 Room Air 3.0 06/05 1658 136 18 94 3.0 06/05 1550 3.0 06/05 1530 130 28 93 2.0 06/05 1430 99.0 124 18 114/79 92 Room Air 06/ 1317 126 16 94 06/05 1156 118 20 94 2.0 06/05 1052 93 Nasal 2.0 Cannula I&O 11/23 0800 06/05 1600 11/24 0000 Intake Total 0 418 Output Total 500 800 630 Balance -500 382 -630 General Appearance Alert, Oriented X3, Mild distress HEENT Atraumatic, Moist mucous membranes Lungs Clear to auscultation Neck Supple, No JVD, No masses Cardiovascular Regular rate and rhythm, Normal S1 and S2 Abdomen Soft, No tenderness Extremities No cyanosis, No clubbing, No edema Skin No Breakdown Neurological Normal speech, Cranial nerves intact, No lateralizing signs Psych/Mental Status Mood normal LAB Results Laboratory Tests 11/24 0525 Chemistry Plasma Sodium (136 - 145 mmol/L) 139 Plasma Potassium (3.5 - 5.1 mmol/L) 4.6 Plasma Chloride (98 - 107 mmol/L) 104 CO2 (Enzymatic) (21 - 32 mmol/L) 23 BUN (7 - 18 mg/dL) 11 Creatinine (0.6 - 1.3 mg/dL) 0.7 Est GFR ( Amer) (mL/min) >60 Est GFR (Non-Af Amer) (mL/min) >60 Glucose (70 - 110 mg/dL) 81 Plasma Calcium (8.5 - 10.1 mg/dL) 7.6 Plasma Magnesium (1.8 - 2.4 mg/dL) 1.5 Total Bilirubin (0.0 - 1.0 mg/dL) 0.5 AST (15 - 37 U/L) 30 ALT (12 - 78 U/L) 30 Alkaline Phosphatase (46 - 116 U/L) 95 Total Protein (6.4 - 8.2 g/dL) 5.3 Albumin (3.3 - 5.0 g/dL) 2.5 Amylase (25 - 115 U/L) 308 Lipase (73 - 393 U/L) 3891 Hematology WBC (4.5 - 11.5 K/uL) 11.1 RBC (4.00 - 5.20 M/uL) 4.07 Hgb (12.0 - 16.0 gm/dL) 14.3 Hct (36.0 - 46.0 %) 43.8 MCV (80 - 100 fL) 108 MCH (26 - 34 pg) 35 RDW (11.6 - 14.8 %) 14.6 Neut % (Auto) (50 - 75 %) 92.9 Lymph % (Auto) (25 - 40 %) 3.2 [place] % (Auto) (3 - 14 %) 3.7 Eos % (Auto) (0 - 4 %) 0 Baso % (Auto) (0 - 2 %) 0.2 Plt Count, EDTA (150 - 400 K/uL) 287 PUBS MCHC (31 - 37 g/dL) 33 Assessment and Plan Problem List 1. Pancreatitis, alcoholic, acute Plan Patient has a 2 day history of abdominal pain Patient has evidence of elevated lipase without any sort of biliary tree compromise Most likely etiology is secondary to alcohol use Patient has been drinking consistently for the past 6 months Will aggressively hydrate with normal saline at 100 mL per hour We will trend lipase We'll adequately control pain via WEB COMMUNICATIONS SPECIALIST We'll monitor for oversedation 2. Nephrolith Plan Patient has a history of nephrolithiasis No kidney stones noticed on examination UA from 2 days ago does not reveal any evidence of nephrolithiasis We'll continue to monitor 3. Chronic back pain Plan Patient has a history of back pain from spinal stenosis Given pain management with pancreatitis will continue with current plan via WEB COMMUNICATIONS SPECIALIST 4. Alcohol abuse Plan Patient has been drinking 1 bottle of wine for the past 6 months As per daughter patient drinks more than 1 bottle and close to a gallon of wine a day As per patient she has never suffered actual withdrawal symptoms but gets the shakes when she doesn't drink We'll monitor the patient closely for possible alcoholic withdrawal We'll have Ativan on board for possible withdrawal symptoms
--- NOTE | 2016-11-23 07:25 | ED MED RECONCILIATION SUMMARY ---
Patient: VERÓNICA CANUT Medication Reconciliation Report [facility] VisitID: [id number] [address] [place] [address] 46y, F Registration Date/Time: 11/23/2016 Weight: 74.8 kg Height/Length: 62 in. BMI: 30.2 ALLERGIES: None The patient's Home Medications are listed below: THE FOLLOWING MEDICATIONS NEED TO BE RECONCILED: Hydrocodone-Acetaminophen Oral, most recently took three tabs, but they didn't even help Zofran Oral 4 mg The source(s) of the original Home Medication information: patient The following Medications were given to the patient in the Emergency Department: IV NS IV Fluids bolus 0, then 1000 mL/hr, administered: 11/23/2016 4:14:00 AM Toradol [IVP] IVP 30 mg, administered: 11/23/2016 4:20:00 AM Demerol [IVP] IVP 25 mg, administered: 11/23/2016 4:35:00 AM Demerol [IVP] IVP 25 mg, administered: 11/23/2016 5:00:00 AM IV NS IV Fluids bolus 0, then 200 mL/hr, administered: 11/23/2016 5:30:00 AM Demerol [IVP] IVP 50 mg, administered: 11/23/2016 5:42:00 AM The following Medications were prescribed to the patient: None.
--- NOTE | 2016-11-23 07:25 | ED MAR SUMMARY ---
..... Medication Administration Record [facility] [address] [place] [address] Patient: VERÓNICA CANTU Visit ID: [id number] 46y, F Weight: 74.8 kg Height/Length: 62 in BMI: 30.2 ALLERGIES: None Start 04:14 11/23/2016 Ismael Adler R.N. Medication Administered: IV NS (SALINE), Dose: IV Fluids over 60 minute(s), Rate: 1000 mL/hr, Dispensed: 1000 mL bag, Site: #1 left forearm. Medication Ordered: IV NS : initial bolus none -, then 1000 mL/hr for X1 (NOW). Given 04:20 11/23/2016 Ismael Adler R.N. Medication Administered: TORADOL [IVP], Dose: 30 mg IVP over 2 minute(s), Site: #1 left forearm. Medication Ordered: Toradol IV 30 mg (NOW). Given 04:35 11/23/2016 Ismael Adler R.N. Medication Administered: DEMEROL [IVP] (MEPERIDINE HCL), Dose: 25 mg IVP over 2 minute(s), Site: #1 left forearm. Medication Ordered: Demerol IV 50 mg (HIGH ALERT MEDICATION, NOW). Given 05:00 11/23/2016 Ismael Adler R.N. Medication Administered: DEMEROL [IVP] (MEPERIDINE HCL), Dose: 25 mg IVP over 2 minute(s), Site: #1 left forearm. Medication Ordered: Demerol IV 50 mg (HIGH ALERT MEDICATION, NOW). Start 05:30 11/23/2016 Ismael Adler R.NTanya, Continued Upon Admission 06:15 11/23/2016 Ismael Adler R.N. Medication Administered: IV NS (SALINE), Dose: IV Fluids over 5 minute(s), Rate: 200 mL/hr, Dispensed: 1000 mL bag, Site: #1 left forearm. Medication Ordered: IV NS : initial bolus none -, then 1000 mL/hr for X1 (NOW). Given 05:42 11/23/2016 Ismael Adler R.N. Medication Administered: DEMEROL [IVP] (MEPERIDINE HCL), Dose: 50 mg IVP over 2 minute(s), Site: #1 left forearm. Medication Ordered: Demerol IV 50 mg (HIGH ALERT MEDICATION, NOW).
--- NOTE | 2016-11-23 07:25 | ED MED RECONCILIATION SUMMARY ---
Patient: VERÓNICA CANTU Medication Reconciliation Report [facility] VisitID: [id number] [address] [place] [address] 46y, F Registration Date/Time: 11/23/2016 Weight: 74.8 kg Height/Length: 62 in. BMI: 30.2 ALLERGIES: None The patient's Home Medications are listed below: THE FOLLOWING MEDICATIONS NEED TO BE RECONCILED: Hydrocodone-Acetaminophen Oral, most recently took three tabs, but they didn't even help Zofran Oral 4 mg The source(s) of the original Home Medication information: patient The following Medications were given to the patient in the Emergency Department: IV NS IV Fluids bolus 0, then 1000 mL/hr, administered: 11/23/2016 4:14:00 AM Toradol [IVP] IVP 30 mg, administered: 11/23/2016 4:20:00 AM Demerol [IVP] IVP 25 mg, administered: 11/23/2016 4:35:00 AM Demerol [IVP] IVP 25 mg, administered: 11/23/2016 5:00:00 AM IV NS IV Fluids bolus 0, then 200 mL/hr, administered: 11/23/2016 5:30:00 AM Demerol [IVP] IVP 50 mg, administered: 11/23/2016 5:42:00 AM The following Medications were prescribed to the patient: None.
--- NOTE | 2016-11-23 07:25 | ED MAR SUMMARY ---
..... Medication Administration Record [facility] [address] [place] [address] Patient: VERÓNICA CANTU Visit ID: [id number] 46y, F Weight: 74.8 kg Height/Length: 62 in BMI: 30.2 ALLERGIES: None Start 04:14 11/23/2016 Ismael Adler R.N. Medication Administered: IV NS (SALINE), Dose: IV Fluids over 60 minute(s), Rate: 1000 mL/hr, Dispensed: 1000 mL bag, Site: #1 left forearm. Medication Ordered: IV NS : initial bolus none -, then 1000 mL/hr for X1 (NOW). Given 04:20 11/23/2016 Ismael Adler R.N. Medication Administered: TORADOL [IVP], Dose: 30 mg IVP over 2 minute(s), Site: #1 left forearm. Medication Ordered: Toradol IV 30 mg (NOW). Given 04:35 11/23/2016 Ismael Adler R.N. Medication Administered: DEMEROL [IVP] (MEPERIDINE HCL), Dose: 25 mg IVP over 2 minute(s), Site: #1 left forearm. Medication Ordered: Demerol IV 50 mg (HIGH ALERT MEDICATION, NOW). Given 05:00 11/23/2016 Ismael Adler R.N. Medication Administered: DEMEROL [IVP] (MEPERIDINE HCL), Dose: 25 mg IVP over 2 minute(s), Site: #1 left forearm. Medication Ordered: Demerol IV 50 mg (HIGH ALERT MEDICATION, NOW). Start 05:30 11/23/2016 Ismael Adler R.NTanya, Continued Upon Admission 06:15 11/23/2016 Ismael Adler R.N. Medication Administered: IV NS (SALINE), Dose: IV Fluids over 5 minute(s), Rate: 200 mL/hr, Dispensed: 1000 mL bag, Site: #1 left forearm. Medication Ordered: IV NS : initial bolus none -, then 1000 mL/hr for X1 (NOW). Given 05:42 11/23/2016 Ismael Adler R.N. Medication Administered: DEMEROL [IVP] (MEPERIDINE HCL), Dose: 50 mg IVP over 2 minute(s), Site: #1 left forearm. Medication Ordered: Demerol IV 50 mg (HIGH ALERT MEDICATION, NOW).
--- NOTE | 2016-11-23 07:25 | ED DISCHARGE INSTRUCTIONS ---
Patient: VERÓNICA CANTU General Instructions [facility] VisitID: [id number] [address] [place] [address] 46y, F Registration Date/Time: 11/23/2016 Acute alcoholic pancreatitis. INSTRUCTIONS Follow-up: Screening today revealed the patient's blood pressure to be in the normal range. (Electronically signed by Gibson Ching Dr. 11/23/2016 5:37)
--- NOTE | 2016-11-23 07:25 | ED DISCHARGE INSTRUCTIONS ---
Patient: VERÓNICA CANTU General Instructions [facility] VisitID: [id number] [address] [place] [address] 46y, F Registration Date/Time: 11/23/2016 Acute alcoholic pancreatitis. INSTRUCTIONS Follow-up: Screening today revealed the patient's blood pressure to be in the normal range. (Electronically signed by Gibson Ching Dr. 11/23/2016 5:37)
[2016-11-23 10:44] VITALS: BP 124/75
[2016-11-23 14:30] VITALS: BP 114/79
[2016-11-23 18:10] VITALS: BP 129/67
[2016-11-23 22:43] VITALS: BP 136/69
[2016-11-24 02:02] VITALS: BP 125/68
[2016-11-24 07:15] VITALS: BP 116/75
[2016-11-24 10:00] VITALS: BP 102/60; BP 122/76
--- NOTE | 2016-11-24 14:03 | Progress Note ---
Subjective General Patient seen and examined. Patient has persistenly elevated heart rate either from disease process or withdrawal symptoms. Patient currently does not have any evidence of acute withdrawal. Constitutional Sweats, Malaise. Denies: Fever, Chills, Weakness, Other. Eyes Denies: Pain, Vision Change, Conjunctival Inflammation, Eyelid Inflammation, Redness, Other. ENT Denies: Ear Pain, Ear Discharge, Nose Pain, Nasal Discharge, Nasal Congestion, Mouth Pain, Mouth Swelling, Throat Pain, Throat Swelling, Other. Respiratory Denies: Cough, Dry, SOB w/exertion, Wheezing, Hemoptysis, Pleuritic Pain, Sputum , Other. Cardiovascular Denies: Chest Pain, Palpitations, Orthopnea, PND, Edema, Light-headedness, Other. Gastrointestinal Nausea, Abdominal Pain. Denies: Vomiting, Diarrhea, Constipation, Melena, Hematochezia, Other. Genitourinary Denies: Dysuria, Frequency, Incontinence, Hematuria, Retention, Other. Musculoskeletal Denies: Neck Pain, Shoulder Pain, Arm Pain, Back Pain, Hand Pain, Leg Pain, Foot Pain, Other. Skin Denies: Rash, Lesions, Jaundice, Bruising, Other. Physical Exam Vital Signs / I&Os Vital Signs Date Time Temp Pulse Resp B/P Pulse O2 O2 Flow FiO2 Ox Delivery Rate 11/24 1333 109 18 94 4.0 06/ 1246 119 18 94 4.0 06/06 1009 121 19 94 4.0 06/06 1000 98.6 121 24 122/76 94 Nasal 4.0 Cannula 06/06 0900 4.0 06/06 0715 98.4 123 16 116/75 92 Nasal 4.0 Cannula 06/06 0703 118 17 94 4.0 06/06 0432 137 24 91 4.0 06/06 0340 131 17 93 3.0 06/06 0202 99.7 134 29 125/68 93 Nasal 3.0 Cannula 06/06 0115 131 17 91 3.0 06/06 0028 3.0 06/05 2243 99.3 132 20 136/69 93 Nasal 3.0 Cannula 06/05 2212 137 20 93 3.0 06/05 1942 129 18 94 3.0 06/05 1810 99.0 133 30 129/67 94 Room Air 3.0 06/05 1658 136 18 94 3.0 06/05 1550 3.0 06/05 1530 130 28 93 2.0 06/05 1430 99.0 124 18 114/79 92 Room Air I&O 11/23 0800 11/23 1600 11/24 0000 Intake Total 0 418 Output Total 500 800 630 Balance -500 -382 -630 General Appearance Alert, Oriented X3, No acute distress HEENT Atraumatic, PERRLA, Moist mucous membranes Lungs Clear to auscultation Neck Supple, No JVD, No masses Cardiovascular Regular rate and rhythm, No murmurs, gallops, rubs Abdomen Soft, - abdominal tenderness to RUQ and LUQ Extremities No clubbing, No edema, Normal pulses Skin No Breakdown Neurological Normal speech, Normal tone, Cranial nerves intact LAB Results Laboratory Tests 11/24 0525 Chemistry Plasma Sodium (136 - 145 mmol/L) 139 Plasma Potassium (3.5 - 5.1 mmol/L) 4.6 Plasma Chloride (98 - 107 mmol/L) 104 CO2 (Enzymatic) (21 - 32 mmol/L) 23 BUN (7 - 18 mg/dL) 11 Creatinine (0.6 - 1.3 mg/dL) 0.7 Est GFR ( Amer) (mL/min) >60 Est GFR (Non-Af Amer) (mL/min) >60 Glucose (70 - 110 mg/dL) 81 Plasma Calcium (8.5 - 10.1 mg/dL) 7.6 Plasma Magnesium (1.8 - 2.4 mg/dL) 1.5 Total Bilirubin (0.0 - 1.0 mg/dL) 0.5 AST (15 - 37 U/L) 30 ALT (12 - 78 U/L) 30 Alkaline Phosphatase (46 - 116 U/L) 95 Total Protein (6.4 - 8.2 g/dL) 5.3 Albumin (3.3 - 5.0 g/dL) 2.5 Amylase (25 - 115 U/L) 308 Lipase (73 - 393 U/L) 3891 Hematology WBC (4.5 - 11.5 K/uL) 11.1 RBC (4.00 - 5.20 M/uL) 4.07 Hgb (12.0 - 16.0 gm/dL) 14.3 Hct (36.0 - 46.0 %) 43.8 MCV (80 - 100 fL) 108 MCH (26 - 34 pg) 35 RDW (11.6 - 14.8 %) 14.6 Neut % (Auto) (50 - 75 %) 92.9 Lymph % (Auto) (25 - 40 %) 3.2 [place] % (Auto) (3 - 14 %) 3.7 Eos % (Auto) (0 - 4 %) 0 Baso % (Auto) (0 - 2 %) 0.2 Plt Count, EDTA (150 - 400 K/uL) 287 PUBS MCHC (31 - 37 g/dL) 33 Assessment and Plan Problem List 1. Pancreatitis, alcoholic, acute Plan - lipase is trending up slightly - will reinforce that patient is strict npo - will continue to trend - pain control via screedman/laborer - will monitor for worsening GI symptoms 2. Chronic back pain Plan - adequate pain control 3. Alcohol abuse Plan - patient has confirmed 6 month history of daily drinking - will monitor for withdrawal symptoms - ativan on board for possible seizure activity - pt already recieved thiamine and folate
[2016-11-24 14:30] VITALS: BP 112/63
[2016-11-24 18:25] VITALS: BP 102/64
[2016-11-24 22:51] VITALS: BP 115/66
[2016-11-25 02:15] VITALS: BP 130/64
[2016-11-25 07:33] VITALS: BP 151/81
[2016-11-25 11:53] VITALS: BP 125/80
[2016-11-25 14:32] VITALS: BP 119/76
--- NOTE | 2016-11-25 15:04 | Progress Note ---
Subjective General Patient seen and examined this morning. Patient is having less abdominal pain however her respiratory status is mediocre at best. Patient is been having periods of shortness of breath. Will initiate breathing treatments and a failed patient will be placed on steroids. Constitutional Denies: Fever, Chills, Sweats, Weakness, Malaise, Other. ENT Denies: Ear Pain, Ear Discharge, Nose Pain, Nasal Discharge, Nasal Congestion, Mouth Pain, Mouth Swelling, Throat Pain, Throat Swelling, Other. Respiratory Denies: Cough, Dry, SOB w/exertion, Wheezing, Hemoptysis, Pleuritic Pain, Sputum , Other. Cardiovascular Denies: Chest Pain, Palpitations, Orthopnea, PND, Edema, Light-headedness, Other. Gastrointestinal Nausea, Abdominal Pain. Denies: Vomiting, Diarrhea, Constipation, Melena, Hematochezia, Other. Genitourinary Denies: Dysuria, Frequency, Incontinence, Hematuria, Retention, Other. Musculoskeletal Denies: Neck Pain, Shoulder Pain, Arm Pain, Back Pain, Hand Pain, Leg Pain, Foot Pain, Other. Skin Denies: Rash, Lesions, Jaundice, Bruising, Other. Neurological Denies: Weakness, Numbness, Incoordination, Change in speech, Confusion, Seizures, Other. Physical Exam Vital Signs / I&Os Vital Signs Date Time Temp Pulse Resp B/P Pulse O2 O2 Flow FiO2 Ox Delivery Rate 11/25 1432 98.2 127 33 119/76 91 Nasal 3.0 Cannula 06/07 1426 115 24 95 3.0 06/07 1215 112 22 95 3.0 06/07 1153 99.1 120 20 125/80 93 Nasal 4.0 Cannula 06/07 1027 127 23 97 4.0 06/07 0816 128 30 95 4.0 06/07 0733 98.4 125 28 151/81 92 Nasal 4.0 Cannula 06/07 0451 102 24 98 4.0 06/07 0255 107 20 96 4.0 06/07 0215 98.4 115 20 130/64 97 Nasal 4.0 Cannula 06/07 0131 Nasal 4.0 Cannula 06/07 0106 101 21 97 4.0 06/06 2251 98.8 109 22 115/66 94 Nasal 4.0 Cannula 06/06 2102 109 19 95 4.0 06/06 1945 Nasal 4.0 Cannula 06/06 1909 111 16 95 4.0 11/24 1825 98.1 113 25 102/64 94 Nasal 4.0 Cannula 11/24 1801 119 15 94 4.0 11/24 1637 106 17 96 4.0 I&O 11/24 0800 11/24 1600 11/25 0000 Intake Total 1884 1043 0 Output Total 250 100 150 Balance 1634 943 -150 General Appearance No acute distress HEENT Atraumatic, Moist mucous membranes Lungs - bilateral wheezes - pooor air exchange even after breathing treatment Neck No JVD, No masses Cardiovascular Regular rate and rhythm, No murmurs, gallops, rubs Abdomen Soft, No tenderness Extremities No edema, Normal pulses, No tenderness Skin No Breakdown Neurological Normal speech, Normal tone, Cranial nerves intact Psych/Mental Status Mood normal LAB Results Laboratory Tests 11/25 0740 Chemistry Plasma Sodium (136 - 145 mmol/L) 143 Plasma Potassium (3.5 - 5.1 mmol/L) 3.6 Plasma Chloride (98 - 107 mmol/L) 107 CO2 (Enzymatic) (21 - 32 mmol/L) 22 BUN (7 - 18 mg/dL) 12 Creatinine (0.6 - 1.3 mg/dL) 0.6 Est GFR ( Amer) (mL/min) >60 Est GFR (Non-Af Amer) (mL/min) >60 Glucose (70 - 110 mg/dL) 67 Plasma Calcium (8.5 - 10.1 mg/dL) 7.9 Total Bilirubin (0.0 - 1.0 mg/dL) 0.5 AST (15 - 37 U/L) 48 ALT (12 - 78 U/L) 29 Alkaline Phosphatase (46 - 116 U/L) 81 Total Protein (6.4 - 8.2 g/dL) 5.2 Albumin (3.3 - 5.0 g/dL) 2.2 Lipase (73 - 393 U/L) 1104 Hematology WBC (4.5 - 11.5 K/uL) 12.1 RBC (4.00 - 5.20 M/uL) 3.66 Hgb (12.0 - 16.0 gm/dL) 12.9 Hct (36.0 - 46.0 %) 39.1 MCV (80 - 100 fL) 107 MCH (26 - 34 pg) 35 RDW (11.6 - 14.8 %) 14.5 Neut % (Auto) (50 - 75 %) 89.6 Lymph % (Auto) (25 - 40 %) 4.2 [place] % (Auto) (3 - 14 %) 6.1 Eos % (Auto) (0 - 4 %) 0.1 Baso % (Auto) (0 - 2 %) 0 Plt Count, EDTA (150 - 400 K/uL) 288 PUBS MCHC (31 - 37 g/dL) 33 Assessment and Plan Problem List 1. Pancreatitis, alcoholic, acute Plan Patient's lipase is trending down appropriately We'll continue with aggressive hydration We'll keep patient nothing by mouth for the time being If patient's lipase under 500 tomorrow we'll consider introducing diet Will decrease the amount of medication patient is getting through [employer] 2. Nephrolith Plan No episodes of any urinary pathology We'll monitor for dysuria 3. Chronic back pain Plan Patient has back pain due to spinal stenosis 4. Wheezing Plan Patient developed wheezing last night Patient on exam has decreased air exchange and wheezing bilaterally Unlikely due to aggressive hydration Patient has an established smoking history and this could possibly be beginning signs of reactive airway disease/COPD Will start breathing treatments when necessary Will initiate methylprednisolone 60 mg every 8 Will monitor for improvement 5. Alcohol abuse Plan Patient has an established history of alcohol abuse Patient is a daily drinker We'll monitor for alcohol withdrawal symptoms Patient is at the time overly sedated and does not exhibit any signs of juanjo alcohol control
[2016-11-25 18:10] VITALS: BP 127/86
[2016-11-25 23:07] VITALS: BP 132/68
[2016-11-26 02:25] VITALS: BP 125/66
[2016-11-26 07:07] VITALS: BP 140/84
--- NOTE | 2016-11-26 09:11 | DIAGNOSTIC IMAGING REPORT ---
PROCEDURE: XR CHEST 1 VIEW INDICATION: persistent shortness of breath TECHNIQUE: Portable AP view 08:25 a.m. COMPARISON: Chest x-ray 07/15/2011 FINDINGS: Poor inspiration. Mild cardiomegaly with pulmonary vascular congestion, moderate right and mild left pleural effusions. Bibasilar atelectasis. Bony thorax is unremarkable. Thorax is normal. IMPRESSION: 1. CHF/fluid overload with bilateral pleural effusions 2. Results called to Dr. Puente
[2016-11-26 10:57] VITALS: BP 138/86
--- NOTE | 2016-11-26 13:18 | DIAGNOSTIC IMAGING REPORT ---
REFERRING PHYSICIAN/PROVIDER: David Puente MD [employer]: Myron Ruiz MD PROCEDURE: M-mode 2D echocardiography with spectral and color flow Doppler TECHNICAL QUALITY: Adequate but the patient had difficulty breathing so limited images were performed. INDICATION: EVIDENCE OF ACUTE HEART FAILURE RHYTHM DURING PROCEDURE: Sinus tachycardia INTERPRETATIONS: LEFT VENTRICLE: The left ventricular chamber size and wall thickness are both within normal limits. The LV ejection fraction is normal with an estimated ejection fraction of 60-65%. There are no focal wall motion abnormalities. There is presence of LV grade 1 diastolic dysfunction. RIGHT VENTRICLE: The right ventricle and chamber size are both within normal limits. The right ventricular systolic pressure could not be estimated because of the lack of a measurable TR jet velocity. ATRIA: Biatrial chamber sizes are within normal limits. MITRAL VALVE: The mitral valve has normal structure and function. There is no evidence of significant mitral regurgitation. AORTIC VALVE: The aortic valve is trileaflet. It opens well. There is trace aortic regurgitation. TRICUSPID VALVE: The valve appears to be grossly normal. There is no evidence of significant tricuspid regurgitation. PULMONIC VALVE: The valve is not well visualized but there is no evidence of significant pulmonic regurgitation. GREAT VESSELS: The aorta root and the ascending aorta are both within normal limits. The IVC was not visualized. PERICARDIUM: There is no evidence of pericardial effusion but presence of a small left pleural effusion. IMPRESSION: 1. There is normal LV systolic function with LV grade 1 diastolic dysfunction. There is no evidence of focal wall motion abnormalities that might suggest ischemic heart disease. 2. The right ventricular systolic function is normal. 3. Biatrial chamber sizes are both within normal limits. 4. There is no evidence of significant valvular heart disease. 5. The aortic root is normal in size.
[2016-11-26 14:30] VITALS: BP 125/77
--- NOTE | 2016-11-26 15:43 | Progress Note ---
Subjective General Patient seen and examined this morning. Patient was seen to be short of breath with wheezes. The patient was given a breathing treatment just prior to exam. Despite this patient still had wheezing and shortness of breath. Patient had an x-ray which showed right sided effusions worse on left. Given this fact the patient may be suffering from diminished cardiac output. Will obtain echocardiogram Constitutional Denies: Fever, Chills, Sweats, Weakness, Malaise, Other. ENT Denies: Ear Pain, Ear Discharge, Nose Pain, Nasal Discharge, Nasal Congestion, Mouth Pain, Mouth Swelling, Throat Pain, Throat Swelling, Other. Respiratory SOB w/exertion, Wheezing. Denies: Cough, Dry, Hemoptysis, Pleuritic Pain, Sputum, Other. Cardiovascular Denies: Chest Pain, Palpitations, Orthopnea, PND, Edema, Light-headedness, Other. Gastrointestinal Denies: Nausea, Vomiting, Abdominal Pain, Diarrhea, Constipation, Melena, Hematochezia, Other. Genitourinary Denies: Dysuria, Frequency, Incontinence, Hematuria, Retention, Other. Musculoskeletal Denies: Neck Pain, Shoulder Pain, Arm Pain, Back Pain, Hand Pain, Leg Pain, Foot Pain, Other. Skin Denies: Rash, Lesions, Jaundice, Bruising, Other. Neurological Denies: Weakness, Numbness, Incoordination, Change in speech, Confusion, Seizures, Other. Physical Exam Vital Signs / I&Os Vital Signs Date Time Temp Pulse Resp B/P Pulse O2 O2 Flow FiO2 Ox Delivery Rate 11/26 1430 97.5 108 31 125/77 93 Nasal 3.5 Cannula 11/26 1412 93 28 91 3.5 06/08 1328 88 Nasal 3.5 Cannula /08 1326 118 41 91 06/08 1057 97.9 113 32 138/86 91 Nasal 3.5 Cannula 06/08 1038 107 27 91 3.0 06/08 0814 112 28 91 3.0 06/08 0750 Nasal 3.0 Cannula 06/08 0707 96.6 120 37 140/84 90 Nasal 3.0 Cannula 06/08 0501 108 24 92 3.0 06/08 0225 98.8 112 22 125/66 92 Nasal 3.0 Cannula 06/08 0122 111 30 92 3.0 06/08 0033 3.0 06/07 2318 113 22 92 3.0 06/07 2307 98.4 112 18 132/68 92 Nasal 3.0 Cannula 11/25 2103 119 16 93 3.0 /07 1954 123 20 91 3.0 /07 1810 98.1 122 34 127/86 91 Nasal 3.0 Cannula 11/25 1709 125 24 91 3.0 /07 1558 Nasal 3.0 Cannula I&O 11/25 0800 06/ 1600 11/26 0000 Intake Total 2802 0 1335 Output Total 965 1150 458 Balance 1837 -1150 877 General Appearance Alert, Oriented X3, No acute distress HEENT Atraumatic, Moist mucous membranes Lungs - bilateral wheezes - tachypnea - poor respiratory effort Neck No JVD, No masses Cardiovascular Regular rate and rhythm, Normal S1 and S2, No murmurs, gallops, rubs Abdomen Soft Extremities No edema, Normal pulses, No tenderness Skin No Breakdown Neurological Normal tone, Sensation intact Psych/Mental Status -agitated LAB Results Laboratory Tests 11/26 11/26 0720 0720 Chemistry Plasma Sodium (136 - 145 mmol/L) 142 Plasma Potassium (3.5 - 5.1 mmol/L) 3.6 Plasma Chloride (98 - 107 mmol/L) 107 CO2 (Enzymatic) (21 - 32 mmol/L) 24 BUN (7 - 18 mg/dL) 16 Creatinine (0.6 - 1.3 mg/dL) 0.6 Est GFR ( Amer) (mL/min) >60 Est GFR (Non-Af Amer) (mL/min) >60 Glucose (70 - 110 mg/dL) 118 Plasma Calcium (8.5 - 10.1 mg/dL) 8.7 Total Bilirubin (0.0 - 1.0 mg/dL) 0.4 AST (15 - 37 U/L) 53 ALT (12 - 78 U/L) 33 Alkaline Phosphatase (46 - 116 U/L) 73 B-Natriuretic Peptide (5 - 100 pg/ml) 231 Total Protein (6.4 - 8.2 g/dL) 6.4 Albumin (3.3 - 5.0 g/dL) 2.1 Lipase (73 - 393 U/L) 259 Hematology WBC (4.5 - 11.5 K/uL) 13.1 RBC (4.00 - 5.20 M/uL) 3.60 Hgb (12.0 - 16.0 gm/dL) 12.6 Hct (36.0 - 46.0 %) 38.3 MCV (80 - 100 fL) 107 MCH (26 - 34 pg) 35 RDW (11.6 - 14.8 %) 14.3 Neut % (Auto) (50 - 75 %) 88 Lymph % (Auto) (25 - 40 %) 3 [place] % (Auto) (3 - 14 %) 4 Eos % (Auto) (0 - 4 %) 0 Baso % (Auto) (0 - 2 %) 0 Band Neutrophils % (0 - 8 %) 5 Metamyelocytes % (0 - 1 %) 0 Myelocytes (0 - 1 %) 0 Other Cell Type 0 Plt Count, EDTA (150 - 400 K/uL) 321 Polychromasia 1+ Macrocytosis (manual) 1+ PUBS MCHC (31 - 37 g/dL) 33 Assessment and Plan Problem List 1. Pancreatitis, alcoholic, acute Plan Patient initially presented with pancreatitis Patient was treated with aggressive IV hydration Patient's lipase came down appropriately Will attempt to start clear diet A patient tolerates that can advance the diet as tolerated Will minimize the amount of pain medication patient is receiving 2. Chronic back pain Plan Patient has a history of spinal stenosis Patient has been taking pain medication for this We'll continue with pain control 3. Fluid overload Plan Patient was seen to be short of breath since yesterday At first it was thought to the patient had reactive airway disease This is most likely due to fluid overload Will diurese patient and obtain echocardiogram Low suspicion for congestive heart failure
[2016-11-26 18:10] VITALS: BP 122/53
[2016-11-26 22:41] VITALS: BP 129/81
[2016-11-27 02:35] VITALS: BP 125/86
[2016-11-27 07:30] VITALS: BP 113/67
[2016-11-27 10:26] VITALS: BP 119/76
[2016-11-27 14:00] VITALS: BP 127/75
--- NOTE | 2016-11-27 16:34 | Progress Note ---
Subjective General Patient seen and examined patient has no complaints. Patient had no acute events overnight. Patient's breathing is much improved compared to yesterday. We will continue to watch patient's and diurese. Patient is able to tolerate a regular diet as right now Constitutional Denies: Fever, Chills, Sweats, Weakness, Malaise, Other. Eyes Denies: Pain, Vision Change, Conjunctival Inflammation, Eyelid Inflammation, Redness, Other. Respiratory SOB w/exertion. Denies: Cough, Dry, Wheezing, Hemoptysis, Pleuritic Pain, Sputum, Other. Cardiovascular Denies: Chest Pain, Palpitations, Orthopnea, PND, Edema, Light-headedness, Other. Gastrointestinal Denies: Nausea, Vomiting, Abdominal Pain, Diarrhea, Constipation, Melena, Hematochezia, Other. Genitourinary Denies: Dysuria, Frequency, Incontinence, Hematuria, Retention, Other. Musculoskeletal Denies: Neck Pain, Shoulder Pain, Arm Pain, Back Pain, Hand Pain, Leg Pain, Foot Pain, Other. Skin Denies: Rash, Lesions, Jaundice, Bruising, Other. Neurological Denies: Weakness, Numbness, Incoordination, Change in speech, Confusion, Seizures, Other. Physical Exam Vital Signs / I&Os Vital Signs Date Time Temp Pulse Resp B/P Pulse O2 O2 Flow FiO2 Ox Delivery Rate 11/27 1400 98.6 78 20 127/75 90 Nasal 2.0 Cannula 11/27 1026 98.1 99 32 119/76 90 Nasal 2.0 Cannula 11/27 1004 Nasal 2.0 Cannula 11/27 0800 2.0 11/27 0730 98.2 63 28 113/67 90 Nasal 2.0 Cannula 11/27 0558 3.0 11/27 0235 98.8 95 19 125/86 93 Nasal 3.0 Cannula 11/26 2355 Nasal 3.0 Cannula 11/26 2241 97.9 106 20 129/81 91 Nasal 3.0 Cannula 11/26 1927 3.0 11/26 1810 97.5 125 28 122/53 92 Nasal 3.0 Cannula 11/26 1635 95 Nasal 3.0 Cannula I&O 11/26 0800 06/08 1600 / 0000 Intake Total 0 240 Output Total 770 1432 594 Balance -770 -7233 -354 General Appearance Alert, Oriented X3, No acute distress HEENT Atraumatic, Moist mucous membranes Lungs Clear to auscultation Neck Supple, No JVD, No masses Cardiovascular Regular rate and rhythm, Normal S1 and S2, No murmurs, gallops, rubs Abdomen Soft, No tenderness Extremities No edema, Normal pulses, No tenderness Skin No Breakdown Neurological Normal tone, Sensation intact, Cranial nerves intact, No lateralizing signs Psych/Mental Status Mood normal LAB Results Laboratory Tests 11/27 0510 Chemistry Plasma Sodium (136 - 145 mmol/L) 148 Plasma Potassium (3.5 - 5.1 mmol/L) 3.5 Plasma Chloride (98 - 107 mmol/L) 109 CO2 (Enzymatic) (21 - 32 mmol/L) 30 BUN (7 - 18 mg/dL) 21 Creatinine (0.6 - 1.3 mg/dL) 0.7 Est GFR ( Amer) (mL/min) >60 Est GFR (Non-Af Amer) (mL/min) >60 Glucose (70 - 110 mg/dL) 156 Plasma Calcium (8.5 - 10.1 mg/dL) 8.9 Total Bilirubin (0.0 - 1.0 mg/dL) 0.3 AST (15 - 37 U/L) 40 ALT (12 - 78 U/L) 33 Alkaline Phosphatase (46 - 116 U/L) 71 Total Protein (6.4 - 8.2 g/dL) 5.6 Albumin (3.3 - 5.0 g/dL) 2.2 Hematology WBC (4.5 - 11.5 K/uL) 13.1 RBC (4.00 - 5.20 M/uL) 3.47 Hgb (12.0 - 16.0 gm/dL) 12.1 Hct (36.0 - 46.0 %) 36.5 MCV (80 - 100 fL) 105 MCH (26 - 34 pg) 35 RDW (11.6 - 14.8 %) 14.4 Neut % (Auto) (50 - 75 %) 92.9 Lymph % (Auto) (25 - 40 %) 2.6 [place] % (Auto) (3 - 14 %) 4.5 Eos % (Auto) (0 - 4 %) 0 Baso % (Auto) (0 - 2 %) 0 Plt Count, EDTA (150 - 400 K/uL) 370 PUBS MCHC (31 - 37 g/dL) 33 Assessment and Plan Problem List 1. Pancreatitis, alcoholic, acute Plan Resolved Patient able to tolerate a regular diet We'll continue with diet and DC pain control and aggressive fluid hydration 2. Chronic back pain Plan Patient has a history of back pain secondary to spinal stenosis We'll treat with Percocet as per medication Back spasms will be treated with baclofen 3. Wheezing Plan Patient has evidence of wheezing secondary to pleural effusion Will diurese the patient as much as possible We'll titrate off of oxygen as much as possible 4. Fluid overload Plan Unknown etiology behind fluid overload It may be due to the inflammation present lungs and aggressive IV hydration Patient's echocardiogram did not reveal any major abnormality except for grade 1 diastolic dysfunction Will continually monitor the patient for any exacerbation
[2016-11-27 19:20] VITALS: BP 114/70
[2016-11-27 22:27] VITALS: BP 128/77
[2016-11-28 03:09] VITALS: BP 126/71
[2016-11-28 07:00] VITALS: BP 111/71
--- NOTE | 2016-11-28 09:28 | Progress Note ---
Subjective General atient is a 46 year old female presenting with abdominal pain. Patient was seen in the ED two days ago for the same thing and was found to have slight blood in her urine with dilated ureters and it was asssumed that the patient had passed a kidney stone. Patient came back to the ED two days later with the same presentation and the patient was seen to have an elevated lipase. Patient claims that the abdominal pain in epicenter in location, has no alleviating or excerbating factors and comes in waves. the pain is associated with nausea and vomiting. Patient claims that the home medications that she takes for pain had no effect on the actual epigastric pain. Patient was unable to tolerate any sort of by mouth intake and decided that due to the severity of the abdominal pain the best options would be come in for evaluation. Patient has no other symptoms of the time except for the epigastric pain. Patient is otherwise hemodynamically stable Abdominal pain resolved no nausea or vomiting, tolerating food fine, c/o back pain which is chronic, also c/o dyspnea with cough no cp, no fever or chills. Review of system: GI: Negative for abdominal pain negative for nausea or vomiting MKS: Positive for back pain Respiratory: Positive for dyspnea and cough Physical Exam Vital Signs / I&Os Vital Signs Date Time Temp Pulse Resp B/P Pulse O2 O2 Flow FiO2 Ox Delivery Rate 11/28 0700 97.9 94 20 111/71 92 2.0 11/28 0309 98.6 93 20 126/71 92 Nasal 2.0 Cannula 11/28 0244 Nasal 2.0 Cannula 11/28 0050 2.0 11/27 2227 97.9 105 19 128/77 93 Nasal 2.0 Cannula 11/27 2055 2.0 11/27 1920 97.5 108 20 114/70 92 Nasal 2.0 Cannula 11/27 1630 Nasal 2.0 Cannula 11/27 1400 98.6 78 20 127/75 90 Nasal 2.0 Cannula 11/27 1026 98.1 99 32 119/76 90 Nasal 2.0 Cannula 11/27 1004 Nasal 2.0 Cannula I&O 11/28 0000 09 1600 11/27 0800 Intake Total 200 680 500 Output Total 1624 1734 Balance -1424 680 -1234 General Appearance Mild distress Lungs wheezing in both bases, decreased air exchange Neck Supple Cardiovascular Regular rate and rhythm, Normal S1 and S2, No murmurs, gallops, rubs Abdomen Normal bowel sounds, Soft, No tenderness Extremities Normal exam (2+ edema bilaterally) Skin No Rashes Psych/Mental Status Mental status normal Assessment and Plan Problem List 1. Dyspnea Plan this is probably combination of fluid overload, and smoking will do PFT 2. Pancreatitis, alcoholic, acute Plan almost resolved 3. Chronic back pain Plan on optimal pain management 4. Fluid overload Plan continue diuresis
[2016-11-28 10:16] VITALS: BP 114/69
[2016-11-28 14:37] VITALS: BP 106/60
--- NOTE | 2016-11-28 18:15 | DIAGNOSTIC IMAGING REPORT ---
PROCEDURE: XR CHEST 1 VIEW INDICATION: CHF, PNEUMONIA TECHNIQUE: Single view chest. 1753 hours COMPARISON: 11/26/2016 FINDINGS: Low lung volumes. Partially visualized heart which appears fairly stable in its mildly enlarged size. There is left central venous congestion but persistent interstitial thickening, bibasilar opacities, and effusions, right greater than left. No pneumothorax. Stable osseous structures. IMPRESSION: 1. Decreased central vascular congestion with persistent interstitial and pulmonary edema. 2. Slight decrease in extent of right pleural fluid.
[2016-11-28 18:33] VITALS: BP 107/63
[2016-11-28 22:27] VITALS: BP 112/82
[2016-11-29] VITALS (7 sets, daily range): BP systolic 107–155; BP diastolic 57–97
--- NOTE | 2016-11-29 06:41 | DIAGNOSTIC IMAGING REPORT ---
PROCEDURE: XR CHEST 1 VIEW INDICATION: Dyspnea. TECHNIQUE: Portable AP view (0617 hours). COMPARISON: Compared to chest x-ray and 11/28/2016 and 11/26/2016. FINDINGS: No significant change in small to moderate of bibasilar pleural effusions with compressive atelectasis. Findings are accentuated due to suboptimal inspiration. Mid and upper lung clear. Heart and mediastinum are normal. Thorax is normal. IMPRESSION: 1. No change in small to moderate bilateral pleural effusions with mild compressive atelectasis.
--- NOTE | 2016-11-29 09:40 | Progress Note ---
Subjective General Patient is a 46 year old female presenting with abdominal pain. Patient was seen in the ED two days ago for the same thing and was found to have slight blood in her urine with dilated ureters and it was asssumed that the patient had passed a kidney stone. Patient came back to the ED two days later with the same presentation and the patient was seen to have an elevated lipase. Patient claims that the abdominal pain in epicenter in location, has no alleviating or excerbating factors and comes in waves. the pain is associated with nausea and vomiting. Patient claims that the home medications that she takes for pain had no effect on the actual epigastric pain. Patient was unable to tolerate any sort of by mouth intake and decided that due to the severity of the abdominal pain the best options would be come in for evaluation. Patient has no other symptoms of the time except for the epigastric pain. Patient is otherwise hemodynamically stable Breathing has improved still has cough, now has some sputum too color not known, no cp no abd pain, no nausea or vomiting, no fever or chills, Review of system: Respiratory: Positive for cough sputum improved breathing GI: Negative for abdominal pain nausea or vomiting Constitutional: Negative for fever or chills Physical Exam Vital Signs / I&Os Vital Signs Date Time Temp Pulse Resp B/P Pulse O2 O2 Flow FiO2 Ox Delivery Rate 11/29 0733 2.0 11/29 0720 98.2 105 20 130/65 92 Nasal 2.0 Cannula 11/29 0222 98.1 95 18 129/57 93 Nasal 2.0 Cannula 11/28 2354 98.1 11/28 2227 98.1 92 18 112/82 95 Nasal 2.0 Cannula 11/28 2045 Room Air 11/28 1833 98.4 106 20 107/63 93 Room Air 11/28 1437 98.2 98 20 106/60 95 Nasal 2.0 Cannula 11/28 1225 Nasal 2.0 Cannula 11/28 1016 98.1 96 20 114/69 90 Nasal 2.0 Cannula I&O 11/29 0000 11/28 1600 11/28 0800 Intake Total 125 840 780 Output Total 954 1012 690 Balance -829 -172 90 General Appearance No acute distress Lungs Clear to auscultation Neck Supple Cardiovascular Regular rate and rhythm, Normal S1 and S2, No murmurs, gallops, rubs Abdomen Normal bowel sounds, Soft, No tenderness Extremities No edema Skin No Rashes Psych/Mental Status Mental status normal LAB Results Laboratory Tests 11/29 11/29 0557 0557 Chemistry Plasma Sodium (136 - 145 mmol/L) 144 Plasma Potassium (3.5 - 5.1 mmol/L) 2.5 Plasma Chloride (98 - 107 mmol/L) 102 CO2 (Enzymatic) (21 - 32 mmol/L) 32 BUN (7 - 18 mg/dL) 20 Creatinine (0.6 - 1.3 mg/dL) 0.6 Est GFR ( Amer) (mL/min) >60 Est GFR (Non-Af Amer) (mL/min) >60 Glucose (70 - 110 mg/dL) 114 Plasma Calcium (8.5 - 10.1 mg/dL) 8.5 Plasma Magnesium (1.8 - 2.4 mg/dL) 1.7 Procalcitonin (0 - 0.5 ng/mL) 0.8 Coagulation D-Dimer, Quantitative (0.27 - 0.52 ug/mLFEU) 6.98 Hematology WBC (4.5 - 11.5 K/uL) 13.2 RBC (4.00 - 5.20 M/uL) 3.67 Hgb (12.0 - 16.0 gm/dL) 12.6 Hct (36.0 - 46.0 %) 38.5 MCV (80 - 100 fL) 105 MCH (26 - 34 pg) 34 RDW (11.6 - 14.8 %) 14.6 Neut % (Auto) (50 - 75 %) 57 Lymph % (Auto) (25 - 40 %) 15 [place] % (Auto) (3 - 14 %) 4 Eos % (Auto) (0 - 4 %) 0 Baso % (Auto) (0 - 2 %) 0 Band Neutrophils % (0 - 8 %) 24 Metamyelocytes % (0 - 1 %) 0 Myelocytes (0 - 1 %) 0 Other Cell Type FEW GIANT PLATELETS Plt Count, EDTA (150 - 400 K/uL) 387 Hypochromic-Microcytic 1+ PUBS MCHC (31 - 37 g/dL) 33 11/28 11/28 11/28 11/28 1755 1755 1755 1739 Blood Gas Sample Site RR Total CO2 (24.0 - 30.0 mmol/L) 38.3 ABG pH (7.35 - 7.45) 7.60 ABG pCO2 at Pt Temp (35 - 45 mmHg) 38.0 ABG pO2 at Pt Temp (80.0 - 100.0 mmHg) 60.7 ABG HCO3 (20.0 - 26.0 mmol/L) 37.1 ABG O2 Sat Calc/Rene (95.1 - 100.0 %) 93.9 ABG Base Excess (-6.0 - -6.0 mmol/L) 14.3 ABG Reduced Hgb (%) 6.0 ABG Carboxyhemoglobin (0.5 - 1.5 %) 1.4 ABG Methemoglobin (0.4 - 1.5 %) -0.2 Brian Test YES Other Total Hgb (12.0 - 16.0 g/dL) 13.4 A-a O2 Gradient (7.0 - 14.0 mmHg) 44.3 Hgb O2 Saturation (95.0 - 100.0 %) 92.8 Respiration Rate (/MIN) 30 Vent Mode SB FiO2 (20 - 101 %) 21 Chemistry Plasma Sodium (136 - 145 mmol/L) 140 Plasma Potassium (3.5 - 5.1 mmol/L) 2.3 Plasma Chloride (98 - 107 mmol/L) 97 CO2 (Enzymatic) (21 - 32 mmol/L) 34 BUN (7 - 18 mg/dL) 22 Creatinine (0.6 - 1.3 mg/dL) 0.7 Est GFR ( Amer) (mL/min) >60 Est GFR (Non-Af Amer) (mL/min) >60 Glucose (70 - 110 mg/dL) 103 Plasma Calcium (8.5 - 10.1 mg/dL) 8.3 Plasma Magnesium (1.8 - 2.4 mg/dL) 1.6 Total Bilirubin (0.0 - 1.0 mg/dL) 0.4 AST (15 - 37 U/L) 32 ALT (12 - 78 U/L) 31 Alkaline Phosphatase (46 - 116 U/L) 90 B-Natriuretic Peptide (5 - 100 pg/ml) 144 Total Protein (6.4 - 8.2 g/dL) 6.5 Albumin (3.3 - 5.0 g/dL) 2.3 Procalcitonin (0 - 0.5 ng/mL) 1.0 Hematology WBC (4.5 - 11.5 K/uL) 12.0 Corrected WBC (auto) (K/uL) 11.9 RBC (4.00 - 5.20 M/uL) 3.93 Hgb (12.0 - 16.0 gm/dL) 13.5 Hct (36.0 - 46.0 %) 41.7 MCV (80 - 100 fL) 106 MCH (26 - 34 pg) 34 RDW (11.6 - 14.8 %) 14.1 Neut % (Auto) (50 - 75 %) 74 Lymph % (Auto) (25 - 40 %) 9 [place] % (Auto) (3 - 14 %) 8 Eos % (Auto) (0 - 4 %) 0 Baso % (Auto) (0 - 2 %) 0 Band Neutrophils % (0 - 8 %) 9 Metamyelocytes % (0 - 1 %) 0 Myelocytes (0 - 1 %) 0 Nucleated RBCs (0 - 1) 1 Other Cell Type 0 Plt Count, EDTA (150 - 400 K/uL) 427 Anisocytosis (manual) 1+ Macrocytosis (manual) 1+ PUBS MCHC (31 - 37 g/dL) 32 Assessment and Plan Problem List 1. Dyspnea Plan will do CT angiogram, start zythromax emerically, continue IV lasix 2. Pancreatitis, alcoholic, acute Plan almost resolved 3. Alcohol abuse Plan out of withrawal window 4. Chronic back pain
--- NOTE | 2016-11-29 11:07 | DIAGNOSTIC IMAGING REPORT ---
PROCEDURE: CTA THORAX WITH CONTRAST INDICATION: Shortness of breath. The tibia. Elevated D-dimer. TECHNIQUE: 125 ml of Isovue 370 was injected intravenously and axial images were obtained of the entire thorax with 3D sagittal and coronal MIP reconstructions. COMPARISON: Comparison made to chest x-ray (11/29/2016), and CT pelvis (11/21/2016). FINDINGS: Small bilateral pleural effusions with moderate bibasilar atelectasis (right greater than left). Mild parenchymal changes in the upper lungs. Pulmonary vessels are normal and there is no evidence of pulmonary embolus. Heart and mediastinum are normal. Thorax is normal. Bilateral breast implants. Portions of the upper abdomen are seen. There is development of moderate to severe pancreatitis with small amount of ascites. Mildly dilated common duct out (10 mm). IMPRESSION: 1. Small bilateral pleural effusion with moderate compressive bibasilar atelectasis. 2. Minor parenchymal changes in the upper lung compatible with atelectasis or small areas of consolidation/pneumonia. 3. No evidence of pulmonary embolus. 4. Development of moderate to severe pancreatitis with small amount of ascites. 5. Moderately dilated common duct. Consider occult common duct stone. Ultrasound of the gallbladder right upper quadrant is recommended. 6. Findings discussed with Dr. Cortes. All CT scans at this facility use dose modulation, iterative reconstruction, and/or weight-based dosing when appropriate to reduce radiation dose to as low as reasonably achievable.
[2016-11-30 03:02] VITALS: BP 113/77
[2016-11-30 07:11] VITALS: BP 107/70
--- NOTE | 2016-11-30 09:24 | Progress Note ---
Subjective General atient is a 46 year old female presenting with abdominal pain. Patient was seen in the ED two days ago for the same thing and was found to have slight blood in her urine with dilated ureters and it was asssumed that the patient had passed a kidney stone. Patient came back to the ED two days later with the same presentation and the patient was seen to have an elevated lipase. Patient claims that the abdominal pain in epicenter in location, has no alleviating or excerbating factors and comes in waves. the pain is associated with nausea and vomiting. Patient claims that the home medications that she takes for pain had no effect on the actual epigastric pain. Patient was unable to tolerate any sort of by mouth intake and decided that due to the severity of the abdominal pain the best options would be come in for evaluation. Patient has no other symptoms of the time except for the epigastric pain. Patient is otherwise hemodynamically stable Doing much better today, dyspnea and cough improved, no fever or chills no nausea or abd. pain, had BM today, tolerating food good, back pain is better too Review of system: Respiratory: Improved dyspnea and cough Constitutional: Negative for fever or chills GI: Negative for nausea abdominal pain positive for bowel movement Physical Exam Vital Signs / I&Os Vital Signs Date Time Temp Pulse Resp B/P Pulse O2 O2 Flow FiO2 Ox Delivery Rate 11/30 0757 2.0 11/30 0711 98.2 94 20 107/70 93 Nasal 3.0 Cannula 11/30 0302 98.8 88 16 113/77 94 Nasal 3.0 Cannula 11/30 0104 3.0 11/29 2300 98.2 89 20 107/64 97 Nasal 3.0 Cannula 11/29 2006 3.0 11/29 1952 Nasal 2.0 Cannula 11/29 1855 97.7 106 20 114/68 95 Nasal 2.0 Cannula 11/29 1400 97.7 100 19 109/66 94 Nasal 3.0 Cannula 11/29 1339 3.0 11/29 1040 97.9 92 19 107/71 92 Nasal 2.0 Cannula I&O 11/30 0000 11/29 1600 11/29 0800 Intake Total 2722 340 741 Output Total 1206 913 8238 Balance 7550 -256 -019 General Appearance No acute distress Lungs Clear to auscultation Neck Supple Cardiovascular Regular rate and rhythm, Normal S1 and S2, No murmurs, gallops, rubs Abdomen Normal bowel sounds, Soft, No tenderness Extremities No edema Skin No Rashes Psych/Mental Status Mental status normal LAB Results Laboratory Tests 11/30 11/30 0540 0500 Chemistry Plasma Sodium (136 - 145 mmol/L) 143 Plasma Potassium (3.5 - 5.1 mmol/L) 2.7 Plasma Chloride (98 - 107 mmol/L) 102 CO2 (Enzymatic) (21 - 32 mmol/L) 34 BUN (7 - 18 mg/dL) 17 Creatinine (0.6 - 1.3 mg/dL) 0.7 Est GFR ( Amer) (mL/min) >60 Est GFR (Non-Af Amer) (mL/min) >60 Glucose (70 - 110 mg/dL) 107 Plasma Calcium (8.5 - 10.1 mg/dL) 8.8 Plasma Magnesium (1.8 - 2.4 mg/dL) 1.9 Lipase (73 - 393 U/L) 220 Cancelled Hematology WBC (4.5 - 11.5 K/uL) 15.6 RBC (4.00 - 5.20 M/uL) 3.46 Hgb (12.0 - 16.0 gm/dL) 12.0 Hct (36.0 - 46.0 %) 36.2 MCV (80 - 100 fL) 105 MCH (26 - 34 pg) 35 RDW (11.6 - 14.8 %) 14.8 Neut % (Auto) (50 - 75 %) 70 Lymph % (Auto) (25 - 40 %) 15 [place] % (Auto) (3 - 14 %) 2 Eos % (Auto) (0 - 4 %) 1 Baso % (Auto) (0 - 2 %) 0 Band Neutrophils % (0 - 8 %) 12 Metamyelocytes % (0 - 1 %) 0 Myelocytes (0 - 1 %) 0 Other Cell Type FEW GIANT PLATELETS Plt Count, EDTA (150 - 400 K/uL) 441 Macrocytosis (manual) 1+ PUBS MCHC (31 - 37 g/dL) 33 Assessment and Plan Problem List 1. Pneumonia Plan improved on Rocephin and Zythromax, ambulate today, possible discharge in AM 2. Pancreatitis, alcoholic, acute Plan clinically resolved 3. Alcohol abuse Plan off withrawal window now 4. Chronic back pain Plan on pain medications
--- NOTE | 2016-11-30 10:27 | DIAGNOSTIC IMAGING REPORT ---
PROCEDURE: US ABDOMEN ULTRASOUND-LIMITED INDICATION: gall bladder, pancreatitis TECHNIQUE: Kerr scale and color Doppler sonographic images were obtained of the right upper quadrant. COMPARISON: CT angiogram of the thorax 11/29/2016, ultrasound 05/29/[address] abdomen 06/09/2016 FINDINGS: The visible portion of the pancreas is diffusely hypoechoic/edematous. Pancreatic duct is not dilated. Pancreatic tail is not visible. No focal peripancreatic fluid collections visible. The visible portion of the common duct is not dilated measuring 6 mm. Lack of good acoustic window precludes good evaluation for choledocholithiasis. The gallbladder is mildly distended and demonstrates irregular, diffuse wall thickening up to 10 mm. No stones or sludge. Daniel's sign was not elicited. The liver is normal size, mildly hypoechoic diffusely, and a demonstrates a focal, irregular, avascular homogeneously echogenic area near the jimmy hepatis measuring about 3.1 x 4.3 x 3.8 cm. No biliary dilatation. The visible portion of the inferior vena cava, abdominal aorta, and portal vein appear normal with appropriate direction of flow in the portal vein. The right kidney is normal measuring 11.2 cm. Right pleural effusion was visible. No focal or significant quantity of right upper quadrant fluid. IMPRESSION: 1. No gallstones. 2. Normal caliber common duct. 3. Lack of good acoustic window precludes good evaluation of the entire common duct and the small common duct stone distally is not excluded. 4. Findings of pancreatitis. No finding of pseudocyst. 5. Thickening of the gallbladder wall is presumably reactive to intraperitoneal inflammation. No other convincing signs of acute cholecystitis. 6. Focal fat deposition in the left lobe of the liver. Similar appearance and more fully evaluated on prior studies.
[2016-11-30 13:46] VITALS: BP 98/64
[2016-11-30 14:40] VITALS: BP 109/59
[2016-11-30 18:05] VITALS: BP 111/66
[2016-11-30 22:34] VITALS: BP 111/62
[2016-12-01] VITALS (7 sets, daily range): BP systolic 101–116; BP diastolic 61–78
--- NOTE | 2016-12-01 07:57 | Progress Note ---
Subjective General Patient is a 46 year old female presenting with abdominal pain. Patient was seen in the ED two days ago for the same thing and was found to have slight blood in her urine with dilated ureters and it was asssumed that the patient had passed a kidney stone. Patient came back to the ED two days later with the same presentation and the patient was seen to have an elevated lipase. Patient claims that the abdominal pain in epicenter in location, has no alleviating or excerbating factors and comes in waves. the pain is associated with nausea and vomiting. Patient claims that the home medications that she takes for pain had no effect on the actual epigastric pain. Patient was unable to tolerate any sort of by mouth intake and decided that due to the severity of the abdominal pain the best options would be come in for evaluation. Patient has no other symptoms of the time except for the epigastric pain. Patient is otherwise hemodynamically stable Abdominal pain almost resolved, no nausea or vomiting, had BM 2 nelli ago, no fever or chills, dyspnea is much better, still has cough with sputum,no chest pain, ambulating fine Review of system: GI: Negative for nausea or vomiting very mild abdominal pain Respiratory: Improved dyspnea positive for cough negative for chest pain Constitutional: Negative for fever or chills Physical Exam Vital Signs / I&Os Vital Signs Date Time Temp Pulse Resp B/P Pulse O2 O2 Flow FiO2 Ox Delivery Rate 12/01 0646 98.8 91 21 109/70 91 Room Air 0.0 12/01 0232 98.4 91 18 101/78 92 Room Air 12/01 0025 Room Air 11/30 2234 98.8 95 18 111/62 92 Room Air 11/30 2000 Room Air 11/30 1805 99.0 112 18 111/66 93 Room Air 11/30 1440 99.1 104 18 109/59 92 Room Air 11/30 1346 97.9 100 20 98/64 94 11/30 1205 3.0 11/30 0949 2.0 11/30 0925 Nasal Cannula 11/30 0757 2.0 I&O 12/01 0000 11/30 1600 11/30 0800 Intake Total 480 623 454 Output Total 1923 481 650 Balance -1443 142 -196 General Appearance No acute distress Lungs Clear to auscultation Neck Supple Cardiovascular Regular rate and rhythm, Normal S1 and S2, No murmurs, gallops, rubs Abdomen Normal bowel sounds, Soft, No tenderness Extremities Normal exam (1+ edema bilaterrally) Skin No Rashes Psych/Mental Status Mental status normal LAB Results Laboratory Tests 12/01 0525 Chemistry Plasma Sodium (136 - 145 mmol/L) 144 Plasma Potassium (3.5 - 5.1 mmol/L) 2.5 Plasma Chloride (98 - 107 mmol/L) 103 CO2 (Enzymatic) (21 - 32 mmol/L) 33 BUN (7 - 18 mg/dL) 14 Creatinine (0.6 - 1.3 mg/dL) 0.6 Est GFR ( Amer) (mL/min) >60 Est GFR (Non-Af Amer) (mL/min) >60 Glucose (70 - 110 mg/dL) 126 Plasma Calcium (8.5 - 10.1 mg/dL) 8.5 Plasma Magnesium (1.8 - 2.4 mg/dL) 1.6 Hematology WBC (4.5 - 11.5 K/uL) 14.8 RBC (4.00 - 5.20 M/uL) 3.35 Hgb (12.0 - 16.0 gm/dL) 11.6 Hct (36.0 - 46.0 %) 35.0 MCV (80 - 100 fL) 105 MCH (26 - 34 pg) 35 RDW (11.6 - 14.8 %) 15.1 Neut % (Auto) (50 - 75 %) 87.1 Lymph % (Auto) (25 - 40 %) 6.4 [place] % (Auto) (3 - 14 %) 4.7 Eos % (Auto) (0 - 4 %) 1.8 Baso % (Auto) (0 - 2 %) 0 Plt Count, EDTA (150 - 400 K/uL) 480 PUBS MCHC (31 - 37 g/dL) 33 Assessment and Plan Problem List 1. Pneumonia Plan improved on abx, continue IV today 2. Hypokalemia Plan this must be due to lasix, will stop it today since there is no need for it, on oral KCL, but will give 60 of IV too 3. Pancreatitis, alcoholic, acute Plan almost resolved eating now 4. Chronic back pain Plan on pain medications
[2016-12-02 02:41] VITALS: BP 153/88
[2016-12-02 06:56] VITALS: BP 119/79
[2016-12-02] MEDS ORDERED: PROTONIX40 MG PO (08:26)
[2016-12-02] MEDS ORDERED: THIAMINE HCL100 MG PO (08:26)
[2016-12-02] MEDS ORDERED: FOLIC ACID1 MG PO (08:26)
[2016-12-02] MEDS ORDERED: KLOR-CON M2020 MEQ PO (08:26)
[2016-12-02] MEDS ORDERED: ZITHROMAX500 MG PO (08:26)
--- NOTE | 2016-12-02 09:14 | DISCHARGE SUMMARY ---
ADMIT DATE: 11/23/2016 DISCHARGE DATE: 12/02/2016 DISCHARGE DIAGNOSES: 1. Hypokalemia 2. Pneumonia 3. Pancreatitis 4. Chronic back pain BRIEF HISTORY: This is a 46-year-old white female who was admitted on 2016. The patient presented to the emergency department with abdominal pain that started 2 days prior to admission. The pain was coming as a wave, associated with nausea and vomiting. It was in the epigastric area. Was not able to eat or drink, and ED evaluation showed the patient had pancreatitis. HOSPITAL COURSE: The patient was admitted to the hospital and was put n.p.o. and IV hydration. The etiology was determined, the patient had pancreatitis due to alcohol use, and also pain managed by PUNCH OPERATOR. Later on, PUNCH OPERATOR was changed to Dilaudid, since the patient was taking too much, due to chronic back pain. Later on, a few days after the admission, the patient developed shortness of breath with rales and congestion in the pulmonary area, determined to be fluid overloaded. The patient was put on Lasix and decreased the fluid, but still continued to have shortness of breath. So we did a CT angiogram due to high D-dimer, and the patient had a questionable infiltrate in the right upper lobe. So the patient was started on Rocephin and Zithromax and responded really well to that, and shortness of breath resolved. Ultrasound of the abdomen showed no gallstones, but inflammation of the pancreas. The patient also was noted to have hypokalemia and required lots of potassium supplement, IV and oral, but finally hypokalemia resolved. The patient also had a PFT yesterday , which result is pending, but finally the patient improved and was able to be put on a clear liquid diet and advanced to full liquid diet. Today the patient is doing much better. No nausea, no vomiting, no abdominal pain. Had a bowel movement. No chest pain, no shortness of breath, and ambulating well, just complains of chronic lower back which is not new. PHYSICAL EXAMINATION: VITAL SIGNS: Temperature is 98.2, pulse is 87, respirations 20, blood pressure 119/79, and oxygen saturation 96% on room air. LUNGS: Clear to auscultation. No rhonchi or wheezing or crackles. HEART: Regular S1 and S2. No murmur. No S3 was heard. ABDOMEN: Soft, nontender. Bowel sounds are positive. EXTREMITIES: No edema. LAB/IMAGING: White blood count 13.9, dropped from 14.8, hemoglobin is 11.3, hematocrit 34.5, and a platelet count is 522. Sodium is 144, potassium 3.5, chloride is 106 , CO2 is 31, BUN is 10, creatinine 0.5, calcium is 8.2. DISCHARGE INSTRUCTIONS/MEDICATIONS: The patient will be discharged home, to follow up with her primary care physician, Dr. Crump, within 1 week. Discharge medications would be outpatient medications, which would be: Celexa 20 mg daily. Potassium supplement 20 mEq twice a day. Protonix 40 mg daily. I will continue Zithromax 500 mg for 3 more days. Baclofen 10 mg t.i.d. Percocet 1 tablet every 6 hours as needed. Metoprolol 12.5 mg twice a day. Thiamine 100 mg daily. Folic acid 1 mg daily.
== END 2016-12-02 11:30 | disposition home or self-care (01) | DRG 438 ==
LOC: ED SRH 03:35 → TRANS SRH 05:27 → ACUTE2 SRH 05:53
PROVIDERS: ADMIT Internal Medicine
DX: K85.20 Alcohol induced acute pancreatitis without necrosis or infection (principal); R11.2 Nausea with vomiting, unspecified; E87.6 Hypokalemia; J18.9 Pneumonia, unspecified organism; E87.70 Fluid overload, unspecified; M48.00 Spinal stenosis, site unspecified; F10.10 Alcohol abuse, uncomplicated; F17.210 Nicotine dependence, cigarettes, uncomplicated
CPT/HCPCS: 29230; 83526; 90004; 90047; 90074; 90100; 91295; 91320; 91504; 91556; 91643; 92235; 92530; 92720; 92760; 92761; 92762; 92763; 92764; 92765; 92766; 92767; 93004; 93070; 95059; 95061

== ENCOUNTER 2016-12-10 15:55 | Emergency (ER) | payer OTHER ==
[~2016-12-10 15:55] MED LIST: FOLIC ACID1 MG PO; KLOR-CON M2020 MEQ PO; NORCO1 TA1 PO; PROTONIX40 MG PO; THIAMINE HCL100 MG PO; ZITHROMAX500 MG PO; ZOFRAN ODT4 MG PO
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
--- NOTE | 2016-12-10 17:42 | ED ORDER SUMMARY ---
..... Patient: VERÓNICA CANTU [facility] [id number] [place] [address] 46y, F Registration Date/Time: 12/10/2016 ORDER SHEET Weight: 79.3 kg (stated) Allergies: None GENERAL ORDERS: CBC w Diff Urgent (16:12/10/2016 HBivens A.R.N.P.) (Ack 16:10 KHoerner) (16:14 KKnebel R.N.) CMP Urgent (16:12/10/2016 HBivens A.R.N.P.) (Ack 16:10 KHoerner) (16:14 KKnebel R.N.) UA-Culture if indicated Urgent (16:12/10/2016 HBivens A.R.N.P.) (Ack 16:10 KHoerner) Urine Drug Screen Urgent (16:12/10/2016 HBivens A.R.N.P.) (Ack 16:10 KHoerner) Ethyl Alcohol Urgent (16:12/10/2016 HBivens A.R.N.P.) (Ack 16:10 KHoerner) (16:14 KKnebel R.N.) Serum Qualitative Urgent (16:12/10/2016 HBivens A.R.N.P.) (Ack 16:10 KHoerner) (16:14 KKnebel R.N.) MEDICATION ORDERS: GI Cocktail WHITE PO 30 mL with Lidocaine Viscous Mouth/Throat 15 mL, Maalox Plus Oral 15 mL (17:12/10/2016 HBivens A.R.N.P.) (17:19 Jyotsna-Ceciliochan R.N.) IV FLUIDS: IV NS : initial bolus 1000 mL (1000 mL/hr), then none - (NOW) (16:08 12/10/2016 HBivens A.R.N.P.) (16:15 KKnebel R.N.) Toradol IV 30 mg (NOW) (16:12/10/2016 HBivens A.R.N.P.) (16:18 KKnebel R.N.) IV Saline Lock (16:09 12/10/2016 HBivens A.R.N.P.) (16:19 KKnebel R.N.) Dilaudid IV 1 mg (HIGH ALERT MEDICATION, NOW) (17:25 12/10/2016 HBivens A.R.N.P.) (Ack 17:25 KPage-Kuchan R.N.) (17:36 KPage-Kuchan R.N.) Zofran IV 4 mg (NOW) (17:25 12/10/2016 HBivens A.R.N.P.) (Ack 17:25 KPage-Kuchan R.N.) (17:37 KPage-Kuchan R.N.) ORDER SHEET NOTES: [Electronically signed by Dorothy QuinonesR.N.P. (19:43 12/10/2016)] [Electronically signed by Mariann Faust R.N. (10:57 12/15/2016)] [Electronically locked/signed by Mariann Faust R.N. (10:57 12/15/2016)]
--- NOTE | 2016-12-10 17:42 | ED ORDER SUMMARY ---
..... Patient: VERÓNICA CANTU [facility] VisitID: [id number] [place] [address] 46y, F Registration Date/Time: 12/10/2016 ORDER SHEET Weight: 79.3 kg (stated) Allergies: None GENERAL ORDERS: CBC w Diff Urgent (16:12/10/2016 HBivens A.R.N.P.) (Ack 16:10 KHoerner) (16:14 KKnebel R.N.) CMP Urgent (16:12/10/2016 HBivens A.R.N.P.) (Ack 16:10 KHoerner) (16:14 KKnebel R.N.) UA-Culture if indicated Urgent (16:12/10/2016 HBivens A.R.N.P.) (Ack 16:10 KHoerner) Urine Drug Screen Urgent (16:12/10/2016 HBivens A.R.N.P.) (Ack 16:10 KHoerner) Ethyl Alcohol Urgent (16:12/10/2016 HBivens A.R.N.P.) (Ack 16:10 KHoerner) (16:14 KKnebel R.N.) Serum Qualitative Urgent (16:12/10/2016 HBivens A.R.N.P.) (Ack 16:10 KHoerner) (16:14 KKnebel R.N.) MEDICATION ORDERS: GI Cocktail WHITE PO 30 mL with Lidocaine Viscous Mouth/Throat 15 mL, Maalox Plus Oral 15 mL (17:12/10/2016 HBivens A.R.N.P.) (17:19 Jyotsna-Ceciliochan R.N.) IV FLUIDS: IV NS : initial bolus 1000 mL (1000 mL/hr), then none - (NOW) (16:08 12/10/2016 HBivens A.R.N.P.) (16:15 KKnebel R.N.) Toradol IV 30 mg (NOW) (16:12/10/2016 HBivens A.R.N.P.) (16:18 KKnebel R.N.) IV Saline Lock (16:09 12/10/2016 HBivens A.R.N.P.) (16:19 KKnebel R.N.) Dilaudid IV 1 mg (HIGH ALERT MEDICATION, NOW) (17:25 12/10/2016 HBivens A.R.N.P.) (Ack 17:25 KPage-Kuchan R.N.) (17:36 KPage-Kuchan R.N.) Zofran IV 4 mg (NOW) (17:25 12/10/2016 HBivens A.R.N.P.) (Ack 17:25 KPage-Kuchan R.N.) (17:37 KPage-Kuchan R.N.) ORDER SHEET NOTES: [Electronically signed by Dorothy QuinonesR.N.P. (19:43 12/10/2016)] [Electronically signed by Mariann Faust R.N. (10:57 12/15/2016)] [Electronically locked/signed by Mariann Faust R.N. (10:57 12/15/2016)]
--- NOTE | 2016-12-15 10:57 | ED DISCHARGE INSTRUCTIONS ---
Patient: VERÓNICA CANTU General Instructions [facility] VisitID: [id number] [place] [address] 46y, F Registration Date/Time: 12/10/2016 Acute epigastric abdominal pain. INSTRUCTIONS Warnings: GENERAL WARNINGS: Return or contact your physician immediately if your condition worsens or changes unexpectedly, if not improving as expected, or if other problems arise. SPECIFICALLY, return if you develop pain in the abdomen or pelvis, fever, the inability to keep fluids down, blood in vomitus, blood in diarrhea, fainting or lightheadedness. Prescription Medications: Ultram 50 mg tablets: take 1-2 orally every 6 hours as needed for pain. Dispense twenty (20). No refills. Substitution is permissible. Follow-up: Follow up with your doctor in about two days even if well. Call for an appointment. Summary of care provided to patient. Understanding of the discharge instructions verbalized by patient. ADDITIONAL INFORMATION Abdominal Pain, Unknown Cause (Female) The exact cause of your abdominal (stomach) pain is not certain. This does not mean that this is something to worry about, or the right tests were not done. Everyone likes to know the exact cause of the problem, but sometimes with abdominal pain, there is no clear-cut cause, and this could be a good thing. The good news is that your symptoms can be treated, and you will feel better. Your condition does not seem serious now; however, sometimes the signs of a serious problem may take more time to appear. For this reason,it is important for you to watch for any new symptoms, problems,or worsening of your condition. Over the next few days, the abdominal pain may come and go, or be continuous. Other common symptoms can include nausea and vomiting. Sometimes it can be difficult to tell if you feel nauseous, you may just feel bad and not associate that feeling with nausea. Constipation, diarrhea, and a fever may go along with the pain. The pain may continue even if treated correctly over the following days. Depending on how things go, sometimes the cause can become clear and may require further or different treatment. Additional evaluations, medications, or tests may be needed. Home care Your health care provider may prescribe medications for pain, symptoms, or an infection. Follow the health care provider's instructions for taking these medications. General care Rest until your next exam. No strenuous activities. Try to find positions that ease discomfort. A small pillow placed on the abdomen may help relieve pain. Something warm on your abdomen (such as a heating pad) may help, but be careful not to burn yourself. Diet Do not force yourself to eat, especially if having cramps, vomiting, or diarrhea. Water is important so you do not get dehydrated. Soup may also be good. Sports drinks may also help, especially if they are not too acidic. Make sure you don't drink sugary drinks as this can make things worse. Take liquids in small amounts. Do not guzzle them. Caffeine sometimes makes the pain and cramping worse. Avoid dairy products if you have vomiting or diarrhea. Don't eat large amounts at a time. Wait a few minutes between bites. Eat a diet low in fiber (called a low-residue diet). Foods allowed include refined breads, white rice, fruit and vegetable juices without pulp, tender meats. These foods will pass more easily through the intestine. Avoid whole-grain foods, whole fruits and vegetables, meats, seeds and nuts, fried or fatty foods, dairy, alcohol and spicy foods until your symptoms go away. Follow-up care Follow up with your health care provider as instructed, or if your pain does not begin to improve in the next 24 hours. When to seek medical care Seek prompt medical care if any of the following occur: Pain gets worse or moves to the right lower abdomen New or worsening vomiting or diarrhea Swelling of the abdomen Unable to pass stool for more than three days Fever of 100.4F (38C) or higher, or as directed by your healthcare provider. Blood in vomit or bowel movements (dark red or black color) Jaundice (yellow color of eyes and skin) Weakness, dizziness Chest, arm, back, neck or jaw pain Unexpected vaginal bleeding or missed period Call 911 Call emergency services if any of the following occur: Trouble breathing Confusion Fainting or loss of consciousness Rapid heart rate Seizure Abdominal Pain,Possible Appendicitis [Repeat Exam, Female] Based on your visit today, the exact cause of your abdominal (stomach) pain is not certain. However, you do have some of the early signs of APPENDICITIS. Early in an appendix infection the symptoms can be similar to a simple "stomach ache" or "stomach flu". Therefore, the diagnosis can be hard to make. Since an appendix infection is a serious condition, it is important to know if this is the cause of your symptoms. WAITING for more time to pass and repeating the exam is the best way to find out whether you have appendicitis. Within the next 12-24 hours the cause of your stomach pain should become clear. It is important for you to watch for any new symptoms or worsening of your condition. (See below). Home Care: Rest until your next exam. No strenuous activities. Eat a diet low in fiber (called a low-residue diet). Foods allowed include refined breads, white rice, fruit and vegetable juices without pulp, tender meats. These foods will pass more easily through the intestine. Avoid whole-grain foods, whole fruits and vegetables, meats, seeds and nuts, fried or fatty foods, dairy, alcohol and spicy foods until your symptoms go away. In some cases, you may be asked not to eat or drink anything until you are re-examined. Return for another exam exactly as directed. Follow Up with your doctor or this facility as directed. Get Prompt Medical Attention if any of the following occur: Pain gets worse or moves to the right lower abdomen New or worsening vomiting or diarrhea Swelling of the abdomen Unable to pass stool for more than three days Fever of 100.4F (38C) or higher, or as directed by your healthcare provider Blood in vomit or bowel movements (dark red or black color) Weakness, dizziness or fainting Unexpected vaginal bleeding Tramadol Hydrochloride Oral tablet What is this medicine? TRAMADOL (TRA ma dole) is a pain reliever. It is used to treat moderate to severe pain in adults. How should I use this medicine? Take this medicine by mouth with a full glass of water. Follow the directions on the prescription label. If the medicine upsets your stomach, take it with food or milk. Do not take more medicine than you are told to take. Talk to your commercial drone pilot regarding the use of this medicine in children. Special care may be needed. What side effects may I notice from receiving this medicine? Side effects that you should report to your doctor or health nurse behavioral health care as soon as possible: allergic reactions like skin rash, itching or hives, swelling of the face, lips, or tongue breathing difficulties, wheezing confusion itching light headedness or fainting spells redness, blistering, peeling or loosening of the skin, including inside the mouth seizures Side effects that usually do not require medical attention (report to your doctor or health nurse behavioral health care if they continue or are bothersome): constipation dizziness drowsiness headache nausea, vomiting What may interact with this medicine? Do not take this medicine with any of the following medications: MAOIs like Carbex, Eldepryl, Marplan, Nardil, and Parnate This medicine may also interact with the following medications: alcohol or medicines that contain alcohol antihistamines benzodiazepines bupropion carbamazepine or oxcarbazepine clozapine cyclobenzaprine digoxin furazolidone linezolid medicines for depression, anxiety, or psychotic disturbances medicines for migraine headache like almotriptan, eletriptan, frovatriptan, naratriptan, rizatriptan, sumatriptan, zolmitriptan medicines for pain like pentazocine, buprenorphine, butorphanol, meperidine, nalbuphine, and propoxyphene medicines for sleep muscle relaxants naltrexone phenobarbital phenothiazines like perphenazine, thioridazine, chlorpromazine, mesoridazine, fluphenazine, prochlorperazine, promazine, and trifluoperazine procarbazine warfarin What if I miss a dose? If you miss a dose, take it as soon as you can. If it is almost time for your next dose, take only that dose. Do not take double or extra doses. Where should I keep my medicine? Keep out of the reach of children. Store at room temperature between 15 and 30 degrees C (59 and 86 degrees F). Keep container tightly closed. Throw away any unused medicine after the expiration date. What should I tell my health care provider before I take this medicine? They need to know if you have any of these conditions: brain tumor depression drug abuse or addiction head injury if you frequently drink alcohol containing drinks kidney disease or trouble passing urine liver disease lung disease, asthma, or breathing problems seizures or epilepsy suicidal thoughts, plans, or attempt; a previous suicide attempt by you or a family member an unusual or allergic reaction to tramadol, codeine, other medicines, foods, dyes, or preservatives or trying to get breast-feeding What should I watch for while using this medicine? Tell your doctor or health nurse behavioral health care if your pain does not go away, if it gets worse, or if you have new or a different type of pain. You may develop tolerance to the medicine. Tolerance means that you will need a higher dose of the medicine for pain relief. Tolerance is normal and is expected if you take this medicine for a long time. Do not suddenly stop taking your medicine because you may develop a severe reaction. Your body becomes used to the medicine. This does NOT mean you are addicted. Addiction is a behavior related to getting and using a drug for a non-medical reason. If you have pain, you have a medical reason to take pain medicine. Your doctor will tell you how much medicine to take. If your doctor wants you to stop the medicine, the dose will be slowly lowered over time to avoid any side effects. You may get drowsy or dizzy. Do not drive, use machinery, or do anything that needs mental alertness until you know how this medicine affects you. Do not stand or sit up quickly, especially if you are an older patient. This reduces the risk of dizzy or fainting spells. Alcohol can increase or decrease the effects of this medicine. Avoid alcoholic drinks. You may have constipation. Try to have a bowel movement at least every 2 to 3 days. If you do not have a bowel movement for 3 days, call your doctor or health nurse behavioral health care. Your mouth may get dry. Chewing sugarless gum or sucking hard candy, and drinking plenty of water may help. Contact your doctor if the problem does not go away or is severe. You have been given the following additional information: Abdominal Pain, Unknown Cause, (Female) Abdominal Pain, Possible Appendicitis (Female) Tramadol Hydrochloride Oral tablet (Electronically signed by Dorothy Quinones A.R.N.P. 12/10/2016 19:43)
--- NOTE | 2016-12-15 10:58 | ED MAR SUMMARY ---
..... Medication Administration Record [facility] [address] [place] [address] Patient: VERÓNICA CANTU Visit ID: [id number] 46y, F Weight: 79.3 kg Height/Length: 62 in BMI: 32 ALLERGIES: None Start 16:15 12/10/2016 Mariann Faust R.N., Stop 17:12/10/2016 Sindi Justin R.N. Medication Administered: IV NS (SALINE), Dose: IV Fluids, Bolus: 1000 mL over 1 hour(s), Dispensed: 1000 mL bag, Site: #1 right AC. Medication Ordered: IV NS : initial bolus 1000 mL (1000 mL/hr), then none - (NOW). Given 16:18 12/10/2016 Mariann Faust R.N. Medication Administered: TORADOL [IVP], Dose: 30 mg IVP over 2 minute(s), Site: #1 right AC. Medication Ordered: Toradol IV 30 mg (NOW). Given 17:14 12/10/2016 Sindi Justin R.N. Medication Administered: GI COCKTAIL WHITE [PO] (SIMETHICONE), Dose: 30 mL Drip PO. Medication Ordered: GI Cocktail WHITE PO 30 mL with Lidocaine Viscous Mouth/Throat 15 mL, Maalox Plus Oral 15 mL. Given 17:12/10/2016 Sindi Justin R.N. Medication Administered: DILAUDID [IVP] (HYDROMORPHONE HCL PF), Dose: 1 mg IVP, Site: #1 right AC. Medication Ordered: Dilaudid IV 1 mg (HIGH ALERT MEDICATION, NOW). Given 17:32 12/10/2016 Sindi Justin R.N. Medication Administered: ZOFRAN [IVP] (ONDANSETRON HCL), Dose: 4 mg IVP, Site: #1 right AC. Medication Ordered: Zofran IV 4 mg (NOW).
--- NOTE | 2016-12-15 10:58 | ED MAR SUMMARY ---
..... Medication Administration Record [facility] [address] [place] [address] Patient: VERÓNICA CANTU Visit ID: [id number] 46y, F Weight: 79.3 kg Height/Length: 62 in BMI: 32 ALLERGIES: None Start 16:15 12/10/2016 Mariann Faust R.N., Stop 17:12/10/2016 Sindi Justin R.N. Medication Administered: IV NS (SALINE), Dose: IV Fluids, Bolus: 1000 mL over 1 hour(s), Dispensed: 1000 mL bag, Site: #1 right AC. Medication Ordered: IV NS : initial bolus 1000 mL (1000 mL/hr), then none - (NOW). Given 16:18 12/10/2016 Mariann Faust R.N. Medication Administered: TORADOL [IVP], Dose: 30 mg IVP over 2 minute(s), Site: #1 right AC. Medication Ordered: Toradol IV 30 mg (NOW). Given 17:14 12/10/2016 Sindi Justin R.N. Medication Administered: GI COCKTAIL WHITE [PO] (SIMETHICONE), Dose: 30 mL Drip PO. Medication Ordered: GI Cocktail WHITE PO 30 mL with Lidocaine Viscous Mouth/Throat 15 mL, Maalox Plus Oral 15 mL. Given 17:12/10/2016 Sindi Justin R.N. Medication Administered: DILAUDID [IVP] (HYDROMORPHONE HCL PF), Dose: 1 mg IVP, Site: #1 right AC. Medication Ordered: Dilaudid IV 1 mg (HIGH ALERT MEDICATION, NOW). Given 17:32 12/10/2016 Sindi Justin R.N. Medication Administered: ZOFRAN [IVP] (ONDANSETRON HCL), Dose: 4 mg IVP, Site: #1 right AC. Medication Ordered: Zofran IV 4 mg (NOW).
--- NOTE | 2016-12-15 10:58 | ED MED RECONCILIATION SUMMARY ---
Patient: VERÓNICA CANTU Medication Reconciliation Report [facility] VisitID: [id number] [place] [address] 46y, F Registration Date/Time: 12/10/2016 Weight: 79.3 kg Height/Length: 62 in. BMI: 32.0 ALLERGIES: None The patient's Home Medications are listed below: THE FOLLOWING MEDICATIONS NEED TO BE RECONCILED: Hydrocodone-Acetaminophen Oral, most recently took three tabs, but they didn't even help Zofran Oral 4 mg The source(s) of the original Home Medication information: Not obtained. The following Medications were given to the patient in the Emergency Department: IV NS IV Fluids bolus 1000 mL over 1 hour(s), administered: 12/10/2016 4:15:00 PM Toradol [IVP] IVP 30 mg, administered: 12/10/2016 4:18:00 PM GI COCKTAIL WHITE [PO] PO 30 mL, administered: 12/10/2016 5:14:00 PM Dilaudid [IVP] IVP 1 mg, administered: 12/10/2016 5:31:00 PM Zofran [IVP] IVP 4 mg, administered: 12/10/2016 5:32:00 PM The following Medications were prescribed to the patient: Ultram 50 mg tablets: take 1-2 orally every 6 hours as needed for pain. Dispense twenty (20). No refills. Substitution is permissible. -- Dorothy Quinones A.R.N.P.
--- NOTE | 2016-12-15 10:58 | ED MED RECONCILIATION SUMMARY ---
Patient: VERÓNICA CANTU Medication Reconciliation Report [facility] VisitID: [id number] [place] [address] 46y, F Registration Date/Time: 12/10/2016 Weight: 79.3 kg Height/Length: 62 in. BMI: 32.0 ALLERGIES: None The patient's Home Medications are listed below: THE FOLLOWING MEDICATIONS NEED TO BE RECONCILED: Hydrocodone-Acetaminophen Oral, most recently took three tabs, but they didn't even help Zofran Oral 4 mg The source(s) of the original Home Medication information: Not obtained. The following Medications were given to the patient in the Emergency Department: IV NS IV Fluids bolus 1000 mL over 1 hour(s), administered: 12/10/2016 4:15:00 PM Toradol [IVP] IVP 30 mg, administered: 12/10/2016 4:18:00 PM GI COCKTAIL WHITE [PO] PO 30 mL, administered: 12/10/2016 5:14:00 PM Dilaudid [IVP] IVP 1 mg, administered: 12/10/2016 5:31:00 PM Zofran [IVP] IVP 4 mg, administered: 12/10/2016 5:32:00 PM The following Medications were prescribed to the patient: Ultram 50 mg tablets: take 1-2 orally every 6 hours as needed for pain. Dispense twenty (20). No refills. Substitution is permissible. -- Dorothy Quinones A.R.N.P.
== END 2016-12-10 17:41 | disposition home or self-care (01) ==
LOC: ED SRH 15:55
DX: R10.13 Epigastric pain (principal); Z72.0 Tobacco use; Z79.899 Other long term (current) drug therapy; Z79.891 Long term (current) use of opiate analgesic
CPT/HCPCS: 90100; 92010; 95059; 98428